=== PATIENT | female | born 1990 | race African-American/Black ===

== ENCOUNTER 2016-04-25 06:08 | Observation (INO) | payer OTHER ==
[~2016-04-25] VITALS: Ht 165.1 cm; Wt 81.0 kg
[~2016-04-25 06:08] MED LIST: ALBU8I INH; AMOX500T PO; MEDR4PAK3 PO; PRED20 PO; VENTAER INH; ZITH250T PO
[2016-04-25 06:11] VITALS: BP 145/89; PULSE 85; RESP 15; TEMP 99.2; O2SAT 100
[2016-04-25] MEDS ORDERED: VENTAER INH (07:40)
[2016-04-25] MEDS ORDERED: MACR100C2 PO (07:40)
[2016-04-25 08:00] VITALS: BP 122/67; PULSE 87; RESP 19; O2SAT 100
[2016-04-25] MEDS ORDERED: ACETAMINOPHEN 325 MG TAB PO ONE (08:00)
--- NOTE | 2016-04-25 08:01 | PD ---
HPI Chief Complaint: Abdominal Pain Time Seen by Provider: 07:40 Travel History International Travel<30 days: No Contact w/Intl Traveler<30days: No Traveled to known affect area: No History of Present Illness HPI This is a 25-year-old female who presents the emergency department with lower abdominal pain, cramping, worse in the left side feeling of fullness in her abdomen, constant, moderate severity. Patient says the pains been going on for a week and a half. She does have some difficulty urinating and initiating her stream but denies any frequency, urgency, fevers or chills. She denies any vomiting. She's not had any constipation or diarrhea. She went to [facility] 2 nights ago and had a urinalysis ordered which confirmed a urinary tract infection. She was discharged with Macrobid. She didn't fill it because it was expensive and she doesn't feel at all like she's had a urinary tract infection. She denies any vaginal discharge or vaginal bleeding. She is sexually active with one male partner. PFSH Past Medical History Asthma: Yes Diabetes: Yes (PRE) Patient Takes Glucophage: No Diminished Hearing: No Gastrointestinal Disorders: No Headaches: Yes Reproductive: No Immunizations Current: Yes Tetanus Vaccination: < 5 Years Influenza Vaccination: No ?: Not LMP: 04/05/16 Menopausal: No : 0 Para: 0 Miscarriage: 0 : 0 Past Surgical History Appendectomy: Yes Other Surgery: No Social History Alcohol Use: No Tobacco Use: Yes Substance Use: No Allergies-Medications (Allergen,Severity, Reaction): Coded Allergies: No Known Allergies (Verified , 04/25/16) Reported Meds & Prescriptions Reported Meds & Active Scripts Active Reported Macrobid (Nitrofurantoin Monoh/Nitrofur Macro) 100 Mg Cap 100 Mg PO BID Ventolin Hfa 18 GM Inh (Albuterol Sulfate) 90 Mcg/Act Aer 2 Puff INH Q4H PRN Review of Systems Except as stated in HPI: all other systems reviewed are Neg Physical Exam Narrative GENERAL:Well appearing, no acute distress SKIN: Warm and dry. HEAD: Atraumatic. Normocephalic. EYES: Pupils equal and round. No injection or drainage. ENT: Moist mucous membranes NECK: Trachea midline. CARDIOVASCULAR: Regular rate and rhythm. No murmur appreciated. RESPIRATORY: Clear to auscultation. Breath sounds equal bilaterally. GASTROINTESTINAL: Abdomen soft, firm mass appreciated from below the xiphoid down to the suprapubic area, moderately tender to palpation. MUSCULOSKELETAL: No obvious deformities. NEUROLOGICAL: Awake and alert. No obvious cranial nerve deficits. Moving all extremities.. PSYCHIATRIC: Appropriate mood and affect; insight and judgment normal. Data Data Last Documented VS Vital Signs Date Time Temp Pulse Resp B/P Pulse Ox O2 Delivery O2 Flow Rate FiO2 04/25/16 06:11 99.2 85 15 145/89 100 Room Air Orders Ed Poc Ultrasound (04/25/16 ) Complete Blood Count With Diff (04/25/16 07:54) Comprehensive Metabolic Panel (04/25/16 07:54) ^ Insert Iv (04/25/16 07:54) Ed Urine Pregnancytest Poc (04/25/16 07:54) Urinalysis - C+S If Indicated (04/25/16 07:54) Ct Abd/Pel W Iv Contrast(Rout) (04/25/16 ) Acetaminophen (Tylenol) (04/25/16 08:00) Urine Culture (04/25/16 08:05) Iohexol 350 Inj (Omnipaque 350 Inj) (04/25/16 08:55) Us Pelvis Comp W Doppler (04/25/16 ) Consult Gynecology (04/25/16 ) Admit Order (Ed Use Only) (04/25/16 ) Place In Observation (04/25/16 ) Vital Signs (Adult) Q4H (04/25/16 09:39) Activity Oob With Assistance (04/25/16 09:39) Sodium Chlor 0.9% 1000 Ml Inj (Ns 1000 M (04/25/16 09:39) Sodium Chloride 0.9% Flush (Ns Flush) (04/25/16 09:45) Sodium Chloride 0.9% Flush (Ns Flush) (04/25/16 21:00) Acetaminophen (Tylenol) (04/25/16 12:00) Ondansetron Inj (Zofran Inj) (04/25/16 09:45) Prochlorperazine Supp (Compazine Supp) (04/25/16 10:00) Bisacodyl Supp (Dulcolax Supp) (04/25/16 09:45) Sennosides (Senokot) (04/25/16 09:45) Basic Metabolic Panel (Bmp) (04/26/16 06:00) Complete Blood Count With Diff (04/26/16 06:00) Resp Oxygen Walter C Titrat 1-4 L (04/25/16 ) Case Management Consult (04/25/16 09:39) Heparin Inj (Heparin Inj) (04/25/16 10:00) Scd Bilateral/Knee High GELACIO.BID (04/25/16 09:39) Demian Bilateral/Knee High GELACIO.QSHIFT (04/25/16 09:39) Diet Regular Basic (04/25/16 Breakfast) Ceftriaxone Inj (Rocephin Inj) (04/25/16 11:00) Labs Laboratory Tests Test 04/25/16 08:05 White Blood Count 9.7 TH/MM3 Red Blood Count 4.27 MIL/MM3 Hemoglobin 12.5 GM/DL Hematocrit 37.2 % Mean Corpuscular Volume 87.2 FL Mean Corpuscular Hemoglobin 29.4 PG Mean Corpuscular Hemoglobin 33.7 % Concent Red Cell Distribution Width 13.7 % Platelet Count 308 TH/MM3 Mean Platelet Volume 8.1 FL Neutrophils (%) (Auto) 46.0 % Lymphocytes (%) (Auto) 42.5 % Monocytes (%) (Auto) 8.2 % Eosinophils (%) (Auto) 2.5 % Basophils (%) (Auto) 0.8 % Neutrophils # (Auto) 4.4 TH/MM3 Lymphocytes # (Auto) 4.1 TH/MM3 Monocytes # (Auto) 0.8 TH/MM3 Eosinophils # (Auto) 0.2 TH/MM3 Basophils # (Auto) 0.1 TH/MM3 CBC Comment DIFF FINAL Differential Comment Urine Color YELLOW Urine Turbidity HAZY Urine pH 5.5 Urine Specific [place] 1.020 Urine Protein TRACE mg/dL Urine Glucose (UA) NEG mg/dL Urine Ketones NEG mg/dL Urine Occult Blood NEG Urine Nitrite NEG Urine Bilirubin NEG Urine Urobilinogen 2.0 MG/DL Urine Leukocyte Esterase LARGE Urine RBC 3 /hpf Urine WBC 8 /hpf Urine Squamous Epithelial 21 /hpf Cells Urine Transitional Epithelial <1 /hpf Cells Urine Bacteria MOD /hpf Urine Mucus MOD /lpf Microscopic Urinalysis Comment CULTURE INDICATED Sodium Level 136 MEQ/L Potassium Level 3.7 MEQ/L Chloride Level 104 MEQ/L Carbon Dioxide Level 24.7 MEQ/L Anion Gap 7 MEQ/L Blood Urea Nitrogen 5 MG/DL Creatinine 0.81 MG/DL Estimat Glomerular Filtration 106 ML/MIN Rate Random Glucose 102 MG/DL Calcium Level 9.0 MG/DL Total Bilirubin 0.2 MG/DL Aspartate Amino Transf 14 U/L (AST/SGOT) Alanine Aminotransferase 17 U/L (ALT/SGPT) Alkaline Phosphatase 70 U/L Total Protein 7.6 GM/DL Albumin 3.4 GM/DL MDM Medical Decision Making Medical Screen Exam Complete: Yes Emergency Medical Condition: Yes Interpretation(s) Afebrile, no tachycardia, hypertensive No leukocytosis Electrolytes within normal limits Urinalysis: White blood cells in the urine Last 24 hours Impressions Abdomen/Pelvis CT 04/25/16 0000 Signed Impressions: Service Date/Time: April 08:52 - CONCLUSION: This is an abnormal exam. There are large heterogeneously enhancing masses which appear to arise from the uterus with the largest mass demonstrating adjacent free fluid. Given this appearance these masses likely represent pedunculated fibroids. The larger mass is concerning for possible sarcomatous degeneration versus torsion. The large cystic lesion identified within the anterior left pelvis appears to represent an enlarged left ovary. Given the large size of the follicle and suggestion of internal septations recommend further evaluation with dedicated ultrasound to exclude torsion or features suggestive of neoplasm. Jerilyn Morales MD Differential Diagnosis Fibroid tumor, malignancy, bowel obstruction, , urinary tract infection Narrative Course This is a 25-year-old female who presents the emergency department with abdominal pain that's been going on for 2 weeks. On exam she has an obvious mass in her abdomen. A bedside ultrasound confirmed this. I performed a CT abdomen and pelvis which demonstrates allergic mass likely coming from the pelvis. They recommend a formal ultrasound for further evaluation. I spoke to gynecology who will consult on the patient. CT has some question regarding torsion. The patient is quite comfortable and doesn't appear clinically to be having an ovarian torsion at this time. Patient will be admitted for further assessment. Procedures Procedure Narrative [id number] ultrasound: Large mass arising in the pelvis and ending in the upper abdomen Physician Communication Physician Communication Discussed with Dr. Brunson Diagnosis Primary Impression: Pelvic mass Admitting Information Admitting Physician Requests: Admit Maryam Galindo MD Apr 25, 2016 08:01
[2016-04-25 08:19] LABS: AUTOMATED NEUTROPHIL # 4.4 TH/MM3 (1.8-7.7); BASOPHIL # 0.1 TH/MM3 (0-0.2); BASOPHIL % 0.8 % (0.0-2.0); EOSINOPHIL # 0.2 TH/MM3 (0-0.4); EOSINOPHIL % 2.5 % (0.0-4.0); HEMATOCRIT 37.2 % (35.0-46.0); HEMO FLAGS DIFF FINAL; LYMPH % 42.5 % (9.0-44.0); LYMPHOCYTE # 4.1 TH/MM3 (1.0-4.8); MEAN CELL VOLUME 87.2 FL (80.0-100.0); MEAN CORPUSCULAR HEMOGLOBIN 29.4 PG (27.0-34.0); MEAN CORPUSCULAR HGB CONC 33.7 % (32.0-36.0); MONO % 8.2 % (0.0-8.0); PLATELET COUNT 308 TH/MM3 (150-450); RED BLOOD COUNT 4.27 MIL/MM3 (4.00-5.30); RED CELL DISTRIBUTION WIDTH 13.7 % (11.6-17.2); WHITE BLOOD COUNT 9.7 TH/MM3 (4.0-11.0)
[2016-04-25 08:25] LABS: BACTERIA, URINE MOD /hpf; BLOOD, URINE NEG (NEG); COMMENT (UR) CULTURE INDICATED; CULTURE IF INDICATED CULTURE INDICATED; GLUCOSE,URINE NEG (NEG); KETONE, URINE NEG (NEG); MUCUS URINE MOD /lpf (OCC); NITRITE,URINE NEG (NEG); PH, URINE 5.5 (5.0-8.5); SQUAMOUS EPITHELIAL CELL URINE 21 /hpf (0-5); TRANSITIONAL EPI CELLS, URINE <1 /hpf; URINE COLOR YELLOW (YELLW/STRAW)
[2016-04-25 08:30] LABS: ALT (GPT) 17 U/L (10-53); ANION GAP 7 MEQ/L (5-15); AST (GOT) 14 U/L (15-37); BICARBONATE 24.7 MEQ/L (21.0-32.0); BLOOD UREA NITROGEN 5 MG/DL (7-18); CHLORIDE 104 MEQ/L (98-107); GLOMERULAR FILTRATION RATE 106 ML/MIN (>89); POTASSIUM 3.7 MEQ/L (3.5-5.1); SODIUM (NA) 136 MEQ/L (136-145)
[2016-04-25 08:33] LABS: ALKALINE PHOSPHATASE 70 U/L (45-117); TOTAL BILIRUBIN ADULT 0.2 MG/DL (0.2-1.0)
[2016-04-25] MEDS ORDERED: IOHEXOL 350 MG/ML 10 ML VIAL (for RAD DIAG) IV ONE (08:55)
--- NOTE | 2016-04-25 09:14 | RADRPT ---
EXAM DATE/TIME: 04/25/2016 08:52 [facility] COMPARISON: No previous studies available for comparison. INDICATIONS : Lower abdominal pain, worse on left side IV CONTRAST: 97 cc Omnipaque 350 (iohexol) IV ORAL CONTRAST: No oral contrast ingested. RADIATION DOSE: 9.22 CTDIvol (mGy) MEDICAL HISTORY : None SURGICAL HISTORY : Appendectomy. ENCOUNTER: Initial ACUITY: 4 - 6 days PAIN SCALE: 5/10 LOCATION: Left lower quadrant TECHNIQUE: Volumetric scanning of the abdomen and pelvis was performed. Using automated exposure control and ad justment of the mA and/or kV according to patient size, radiation dose was kept as low as reasonably achievable to obtain optimal diagnostic quality images. FINDINGS: LOWER LUNGS: The visualized lower lungs are clear. LIVER: Homogeneous density without lesion. There is no dilation of the biliary tree. No calcified gallston es. SPLEEN: Normal size without lesion. PANCREAS: Within normal limits. KIDNEYS: Normal in size and shape. There is no mass, stone or hydronephrosis. ADRENAL GLANDS: Within normal limits. VASCULAR: There is no aortic aneurysm. BOWEL/MESENTERY: The stomach, small bowel, and colon demonstrate no acute abnormality. ABDOMINAL WALL: Within normal limits. RETROPERITONEUM: There is no lymphadenopathy. BLADDER: No wall thickening or mass. REPRODUCTIVE: There are 2 lobulated heterogeneously enhancing masses which appear to originate from the uterus. The smaller mass is seen on the left measuring 3.3 x 3.6 x 4.1 cm. There is a large lobulated mass which appears to arise from the superior lateral aspect of the uterus which measures 14.7 cm craniocaudall y by 15.6 cm transversely by 7.9 cm anterior posterior. This mass is associated with a small amount o f free fluid inferiorly. Along the anterior aspect of the uterus, slightly to the left is 8 well circ umscribed fluid density mass with suggestion of internal septations. This mass measures 6.4 cm transv ersely by 5 cm anteroposterior by 5.5 cm craniocaudally. This mass causes moderate mass effect on the adjacent bladder and may arise from the left adnexa. There is a small low-density structure seen adj acent to the right lower uterine segment measuring 2.5 x 2.6 x 3.0 cm and appears to represent a norm al right ovary. INGUINAL: There is no lymphadenopathy or hernia. MUSCULOSKELETAL: Within normal limits for patient age. CONCLUSION: This is an abnormal exam. There are large heterogeneously enhancing masses which appe ar to arise from the uterus with the largest mass demonstrating adjacent free fluid. Given this appea ana lilia these masses likely represent pedunculated fibroids. The larger mass is concerning for possible sarcomatous degeneration versus torsion. The large cystic lesion identified within the anterior left pelvis appears to represent an enlarged left ovary. Given the large size of the follicle and suggest ion of internal septations recommend further evaluation with dedicated ultrasound to exclude torsion or features suggestive of neoplasm. Jerilyn Morales MD on April 25, 2016 at 9:01 Board Certified Radiologist. This report was verified electronically.
[2016-04-25] MEDS ORDERED: ONDANSETRON HCL 4 MG/2 ML VIAL IVP PRN (09:45)
[2016-04-25] MEDS ORDERED: SENNOSIDES 8.6 MG TAB PO PRN (09:45)
[2016-04-25] MEDS ORDERED: SODIUM CHLORIDE 0.9% FLUSH 5 ML FLUSH FLUSH PRN (09:45)
[2016-04-25] MEDS ORDERED: BISACODYL 10 MG SUPP PR PRN (09:45)
[2016-04-25] MEDS ORDERED: HEPARIN SODIUM - SQ 10,000 UNITS/ML VIAL SQ SCH (10:00)
[2016-04-25] MEDS ORDERED: PROCHLORPERAZINE 25 MG SUPP PR PRN (10:00)
[2016-04-25] MEDS: SODIUM CHLOR 0.9% 1000 ML INJ 1,000 ML IV SCH ×2 (10:43→22:34)
[2016-04-25 11:00] VITALS: BP 121/78; PULSE 77; RESP 20; O2SAT 100
[2016-04-25] MEDS ORDERED: cefTRIAXone INJ 1,000 MG in SODIUM CHLORIDE 0.9% INJ 100 ML IV SCH (11:00)
[2016-04-25 11:41] VITALS: BP 126/68; PULSE 77; RESP 18; TEMP 98.6; O2SAT 100
[2016-04-25] MEDS ORDERED: ACETAMINOPHEN 325 MG TAB PO PRN (12:00)
--- NOTE | 2016-04-25 13:07 | RADRPT ---
EXAM DATE/TIME: 04/25/2016 10:30 [facility] COMPARISON: CT ABDOMEN & PELVIS W CONTRAST, April 25, 2016, 8:52. INDICATIONS : Pelvic pain. MEDICAL HISTORY : Pre-diabetes. Asthma. SURGICAL HISTORY : Appendectomy. ENCOUNTER: Initial ACUITY: 1 week PAIN SCORE: 9/10 LOCATION: Bilateral pelvis MEASUREMENTS: UTERUS: 11.1 x 3.9 x 4.5 cm ENDOMETRIAL STRIPE: 7 mm RIGHT OVARY: 3.4 x 2.3 x cm LEFT OVARY: 3.3 x 1.6 x 2.2 cm FINDINGS: UTERUS: The endometrium has a normal appearance. Arising from the uterine fundus there is an exophytic hypoec hoic solid appearing mass measuring 3.2 x 3.2 x 3.6 cm. Also abutting and possibly arising from the f undal aspect of the uterus is a hypoechoic solid mass with internal vascularity measuring approximate ly 14.7 x 10.6 x 10.6 cm. RIGHT OVARY: The right ovary is visualized and appears to represent a separate structure from the solid pelvis mas s. Blood flow is documented. LEFT OVARY: There is a cystic structure in the midline pelvis 2 left adnexa that potentially could arise from the left ovary. The left ovary has internal blood flow. The cystic lesion measures 5.8 x 4.3 x 6.7 cm. I t contains no internal septations. MISCELLANEOUS: There is trace free fluid in the posterior cul-de-sac and left adnexa. CONCLUSION: 1. There is a large solid mass in the pelvis measuring up to 14.7 cm. Based on ultrasound and prior C T this abuts and may arise from the uterus raising suspicion for a pedunculated leiomyoma. Given the heterogeneous appearance and size, a sarcoma should also be considered. The right ovary appears as a separate structure from this finding suggesting that it does not arise from the ovary. 2. There is an exophytic subserosal fibroid arising from the left fundus measuring up to 3.6 cm. 3. There is a cystic lesion in the midline pelvis to left adnexal region measuring up to 6.7 cm. Etio logy of this cystic lesion is uncertain but is near the left ovary and potentially may be arising fro m the left ovary. Gianfranco Hampton MD on April 25, 2016 at 12:56 Board Certified Radiologist. This report was verified electronically.
--- NOTE | 2016-04-25 14:52 | PD.CONS ---
HPI Chief Complaint abdominal pain Date Seen: Apr 25, 2016 Time Seen: 14:01 (Gerard Sheldon MD R1) Travel History International Travel<30 Days: No Contact w/Intl Traveler<30Days: No Known Affected Area: No (Gerard Sheldon MD R1) History of Present Illness HPI 25 y/o -[place] female presents with abdominal pain. 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 States that the lower abdominal pain and cramping started for a week and a half. Also feels bloated. Constant pain. Moderate severity, getting worse. Endorses difficulty urinating and frequent urination. Denies dysuria. Denies any fever/chills, diarrhea. Denies recent weight loss, night sweats. States she has constipation off and on. Does have streaks of blood in her stool when her stools is hard. She did go to [facility] 2 nights ago and had UTI diagnosed. Did not take any medication. Denies any vaginal discharge or bleeding. Her periods are regular and monthly. Menarche at 12 y/o. Had heavy and painful periods for a couple years, but they are asymptomatic now after starting oral contraceptives. She is sexually active with 1 partner. No history of pain like this before. Para: 0 : 0 Last Menstrual Period: Apr 05, 2016 (Gerard Sheldon MD R1) History Past Medical History Narrative Medical Asthma (Gerard Sheldon MD R1) Obstetric History Obstetric History Never (Gerard Sheldon MD R1) Past Surgical History Narrative Surgical Appendectomy (Gerard Sheldon MD R1) Family History Narrative Family History Parents are healthy No siblings. No history of cancer in the family (Gerard Sheldon MD R1) Social History Alcohol Use: No Tobacco Use: No Substance Abuse: No (Gerard Sheldon MD R1) Allergies-Medications (Allergen,Severity, Reaction): Coded Allergies: No Known Allergies (Verified , 04/25/16) Home Meds Reported Medications Nitrofurantoin Monohydrate Macrocrystals (Macrobid)100 Mg [id number] Mg PO BID Ref 0 04/25/16 Albuterol 18 GM Inh (Ventolin Hfa 18 GM Inh)90 Mcg/Act Aer2 Puff INH Q4H PRN ( SHORTNESS OF BREATH) #1 INHALER Ref 0 04/25/16 Review of Systems General / Constitutional: No: Fever, Weight Loss, Chills Eyes: No: Visual changes HENT: No: Headaches, Lightheadedness Cardiovascular: No: Chest Pain or Discomfort, Palpitations Respiratory: No: Cough, Short of Breath Gastrointestinal: Abdominal Pain, Constipation, No: Nausea, Vomiting, Diarrhea Genitourinary: Urgency, Frequency, Pelvic Pain, No: Dysuria, Hematuria, Discharge, Vaginal Bleeding Musculoskeletal: No: Weakness, Cramping, Edema Skin: No Rash, No Itching Neurologic: No: Weakness, Dizziness Psychiatric: No: Anxiety, Depression Endocrine: No: Heat Intolerance, Cold Intolerance Hematologic/Lymphatic: No Easy Bruising, No Lymph Node Enlargement (Gerard Sheldon MD R1) Physical Exam Narrative GENERAL: Well-nourished, well-developed patient. SKIN: Warm and dry. HEAD: Normocephalic and atraumatic. EYES: No scleral icterus. No injection or drainage. ENT: No nasal drainage noted. Mucous membranes pink. Airway patent. NECK: Supple, trachea midline. No JVD. CARDIOVASCULAR: Regular rate and rhythm without murmurs, gallops, or rubs. RESPIRATORY: Breath sounds equal bilaterally. No accessory muscle use. ABDOMEN/GI: Abdomen soft. Minimally tender to palpation in LLQ. Mid-abdominal mass appreciated, minimally tender to palpation. BS+ EXTREMITIES: No cyanosis or edema. BACK: Nontender without obvious deformity. No CVA tenderness. NEUROLOGICAL: Awake and alert. Motor and sensory grossly within normal limits. Five out of 5 muscle strength in all muscle groups. Normal speech. (Gerard Sheldon MD R1) Data Data Vital Signs Reviewed: Yes Orders Ed Poc Ultrasound (04/25/16 ) Complete Blood Count With Diff (04/25/16 07:54) Comprehensive Metabolic Panel (04/25/16 07:54) ^ Insert Iv (04/25/16 07:54) Ed Urine Pregnancytest Poc (04/25/16 07:54) Urinalysis - C+S If Indicated (04/25/16 07:54) Ct Abd/Pel W Iv Contrast(Rout) (04/25/16 ) Acetaminophen (Tylenol) (04/25/16 08:00) Urine Culture (04/25/16 08:05) Iohexol 350 Inj (Omnipaque 350 Inj) (04/25/16 08:55) Us Pelvis Comp W Doppler (04/25/16 ) Consult Gynecology (04/25/16 ) Admit Order (Ed Use Only) (04/25/16 ) Place In Observation (04/25/16 ) Vital Signs (Adult) Q4H (04/25/16 09:39) Activity Oob With Assistance (04/25/16 09:39) Sodium Chlor 0.9% 1000 Ml Inj (Ns 1000 M (04/25/16 09:39) Sodium Chloride 0.9% Flush (Ns Flush) (04/25/16 09:45) Sodium Chloride 0.9% Flush (Ns Flush) (04/25/16 21:00) Acetaminophen (Tylenol) (04/25/16 12:00) Ondansetron Inj (Zofran Inj) (04/25/16 09:45) Prochlorperazine Supp (Compazine Supp) (04/25/16 10:00) Bisacodyl Supp (Dulcolax Supp) (04/25/16 09:45) Sennosides (Senokot) (04/25/16 09:45) Basic Metabolic Panel (Bmp) (04/26/16 06:00) Complete Blood Count With Diff (04/26/16 06:00) Resp Oxygen Walter C Titrat 1-4 L (04/25/16 ) Case Management Consult (04/25/16 09:39) Heparin Inj (Heparin Inj) (04/25/16 10:00) Scd Bilateral/Knee High GELACIO.BID (04/25/16 09:39) Demian Bilateral/Knee High GELACIO.QSHIFT (04/25/16 09:39) Diet Regular Basic (04/25/16 Breakfast) Ceftriaxone Inj (Rocephin Inj) (04/25/16 11:00) (Hub Use Only)Inp Phy Cons/Ref (04/25/16 ) Labs Laboratory Tests Test 04/25/16 08:05 White Blood Count 9.7 Red Blood Count 4.27 Hemoglobin 12.5 Hematocrit 37.2 Mean Corpuscular Volume 87.2 Mean Corpuscular Hemoglobin 29.4 Mean Corpuscular Hemoglobin 33.7 Concent Red Cell Distribution Width 13.7 Platelet Count 308 Mean Platelet Volume 8.1 Neutrophils (%) (Auto) 46.0 Lymphocytes (%) (Auto) 42.5 Monocytes (%) (Auto) 8.2 Eosinophils (%) (Auto) 2.5 Basophils (%) (Auto) 0.8 Neutrophils # (Auto) 4.4 Lymphocytes # (Auto) 4.1 Monocytes # (Auto) 0.8 Eosinophils # (Auto) 0.2 Basophils # (Auto) 0.1 CBC Comment DIFF FINAL Differential Comment Urine Color YELLOW Urine Turbidity HAZY Urine pH 5.5 Urine Specific [place] 1.020 Urine Protein TRACE Urine Glucose (UA) NEG Urine Ketones NEG Urine Occult Blood NEG Urine Nitrite NEG Urine Bilirubin NEG Urine Urobilinogen 2.0 Urine Leukocyte Esterase LARGE Urine RBC 3 Urine WBC 8 Urine Squamous Epithelial 21 Cells Urine Transitional Epithelial <1 Cells Urine Bacteria MOD Urine Mucus MOD Microscopic Urinalysis Comment CULTURE INDICATED Sodium Level 136 Potassium Level 3.7 Chloride Level 104 Carbon Dioxide Level 24.7 Anion Gap 7 Blood Urea Nitrogen 5 Creatinine 0.81 Estimat Glomerular Filtration 106 Rate Random Glucose 102 Calcium Level 9.0 Total Bilirubin 0.2 Aspartate Amino Transf 14 (AST/SGOT) Alanine Aminotransferase 17 (ALT/SGPT) Alkaline Phosphatase 70 Total Protein 7.6 Albumin 3.4 Date/Time Procedure Status Source Growth 04/25/16 08:05 Urine Culture Received Urine Clean Catch Pending (Gerard Sheldon MD R1) [facility] Medical Record Reviewed: Yes Interpretation(s) 25 y/o with pelvic pain found to have uterine mass on ultrasound and CT. Imaging shows mass up to 14.7cm. Most likely a fibroid, but imaging can't rule out sarcoma. - Will need surgical intervention. Discuss case with Dr. Barajas dw Dr. Collins Admitting diagnosis: pelvic mass (Gerard Sheldon MD R1) Attestation Patient seen and examined with the resident under direct supervision, I agree with the assessment and plan. Will refer patient to Dr. Barajas after discharge for outpatient follow-up and further surgical management. I have discussed the patient with Dr. Barajas who agrees with the plan. (Alexi Collins MD) Gerard Sheldon MD R1 Apr 25, 2016 14:52 Alexi Collins MD Apr 25, 2016 22:50
--- NOTE | 2016-04-25 16:52 | HHI.HP ---
[facility] Service [facility] Primary Care Physician Gianfranco Garcia DO Admission Diagnosis pelvic mass Diagnoses: Chief Complaint: abdominal pain Travel History International Travel<30 Days: No Contact w/Intl Traveler <30 Da: No Traveled to Known Affected Are: No History of Present Illness 25 y/o -Prydeinig female without significant PMH presents with abdominal pain. States that the lower abdominal pain and cramping started for a week and a half. Also feels bloated. Constant pain. Moderate severity, getting worse. Endorses difficulty urinating and frequent urination. Denies dysuria. Denies any fever/chills, diarrhea. Denies recent weight loss, night sweats. States she has constipation off and on. Does have streaks of blood in her stool when her stools is hard. She did go to [facility] 2 nights ago and had UTI diagnosed. Did not take any medication. Denies any vaginal discharge or bleeding. Her periods are regular and monthly. Menarche at 12 y/o. Had heavy and painful periods for a couple years, but they are asymptomatic now after starting oral contraceptives. She is sexually active with 1 partner. No history of pain like this before. TIN DIPPER was consulted for evaluation of pelvic mass Review of Systems Constitutional: DENIES: Fever, Chills, Change in appetite Endocrine: DENIES: Heat/cold intolerance Eyes: DENIES: Blurred vision, Eye pain Ears, nose, mouth, throat: DENIES: Tinnitus, Hearing loss, Vertigo, Nasal discharge, Oral lesions, Throat pain, Hoarseness, Ear Pain, Running Nose, Epistaxis, Sinus Pain, Toothache, Odynophagia Respiratory: DENIES: Apneas, Cough, Snoring, Wheezing, Hemoptysis, Sputum production, Shortness of breath Cardiovascular: DENIES: Chest pain, Palpitations, Syncope, Dyspnea on Exertion , PND, Lower Extremity Edema, Orthopnea, Claudication Gastrointestinal: COMPLAINS OF: Abdominal pain, DENIES: Black stools, Bloody stools, Constipation, Diarrhea, Nausea, Vomiting, Difficulty Swallowing, Anorexia Genitourinary: COMPLAINS OF: Urinary frequency, Urgency Musculoskeletal: DENIES: Joint pain Neurologic: DENIES: Abnormal gait, Headache, Localized weakness, Paresthesias, Seizures, Speech Problems, Tremor, Poor Balance Psychiatric: DENIES: Anxiety, Depression Past Family Social History Past Medical History Asthma Past Surgical History Appendectomy Reported Medications Reported Meds & Active Scripts Active Reported Macrobid (Nitrofurantoin Monoh/Nitrofur Macro) 100 Mg Cap 100 Mg PO BID Ventolin Hfa 18 GM Inh (Albuterol Sulfate) 90 Mcg/Act Aer 2 Puff INH Q4H PRN Allergies: Coded Allergies: No Known Allergies (Verified , 04/25/16) Family History Parents are healthy No siblings. No history of cancer in the family Social History Denies EtOH use, tobacco use or illicit drug use. Physical Exam Vital Signs Vital Signs Date Time Temp Pulse Resp B/P Pulse Ox O2 Delivery O2 Flow Rate FiO2 04/25/16 11:41 98.6 77 18 126/68 100 04/25/16 11:00 77 20 121/78 100 Room Air 04/25/16 08:00 87 19 122/67 100 Room Air 04/25/16 06:11 99.2 85 15 145/89 100 Room Air Physical Exam GENERAL: This is a well-nourished, well-developed patient, in no apparent distress. SKIN: No rashes, ecchymoses or lesions. Cool and dry. HEAD: Atraumatic. Normocephalic. No temporal or scalp tenderness. EYES: Pupils equal round and reactive. Extraocular motions intact. No scleral icterus. No injection or drainage. ENT: Nose without bleeding, purulent drainage or septal hematoma. Throat without erythema, tonsillar hypertrophy or exudate. Uvula midline. Airway patent. NECK: Trachea midline. No JVD or lymphadenopathy. Supple, nontender, no meningeal signs. CARDIOVASCULAR: Regular rate and rhythm without murmurs, gallops, or rubs. RESPIRATORY: Clear to auscultation. Breath sounds equal bilaterally. No wheezes , rales, or rhonchi. GASTROINTESTINAL: Abdomen soft. Minimally tender to palpation in LLQ. Mid- abdominal mass appreciated, minimally tender to palpation. BS+ MUSCULOSKELETAL: Extremities without clubbing, cyanosis, or edema. No joint tenderness, effusion, or edema noted. No calf tenderness. Negative Homans sign bilaterally. NEUROLOGICAL: Awake and alert. Cranial nerves II through XII intact. Motor and sensory grossly within normal limits. Five out of 5 muscle strength in all muscle groups. Normal speech. Laboratory Laboratory Tests Test 04/25/16 08:05 White Blood Count 9.7 Red Blood Count 4.27 Hemoglobin 12.5 Hematocrit 37.2 Mean Corpuscular Volume 87.2 Mean Corpuscular Hemoglobin 29.4 Mean Corpuscular Hemoglobin 33.7 Concent Red Cell Distribution Width 13.7 Platelet Count 308 Mean Platelet Volume 8.1 Neutrophils (%) (Auto) 46.0 Lymphocytes (%) (Auto) 42.5 Monocytes (%) (Auto) 8.2 Eosinophils (%) (Auto) 2.5 Basophils (%) (Auto) 0.8 Neutrophils # (Auto) 4.4 Lymphocytes # (Auto) 4.1 Monocytes # (Auto) 0.8 Eosinophils # (Auto) 0.2 Basophils # (Auto) 0.1 CBC Comment DIFF FINAL Differential Comment Urine Color YELLOW Urine Turbidity HAZY Urine pH 5.5 Urine Specific Parker 1.020 Urine Protein TRACE Urine Glucose (UA) NEG Urine Ketones NEG Urine Occult Blood NEG Urine Nitrite NEG Urine Bilirubin NEG Urine Urobilinogen 2.0 Urine Leukocyte Esterase LARGE Urine RBC 3 Urine WBC 8 Urine Squamous Epithelial 21 Cells Urine Transitional Epithelial <1 Cells Urine Bacteria MOD Urine Mucus MOD Microscopic Urinalysis Comment CULTURE INDICATED Sodium Level 136 Potassium Level 3.7 Chloride Level 104 Carbon Dioxide Level 24.7 Anion Gap 7 Blood Urea Nitrogen 5 Creatinine 0.81 Estimat Glomerular Filtration 106 Rate Random Glucose 102 Calcium Level 9.0 Total Bilirubin 0.2 Aspartate Amino Transf 14 (AST/SGOT) Alanine Aminotransferase 17 (ALT/SGPT) Alkaline Phosphatase 70 Total Protein 7.6 Albumin 3.4 Date/Time Procedure Status Source Growth 04/25/16 08:05 Urine Culture Received Urine Clean Catch Pending Result Diagram: 04/25/16 0805 04/25/16 0805 Imaging Last Impressions Pelvis Ultrasound 04/25/16 0000 Signed Impressions: Service Date/Time: April 10:30 - CONCLUSION: 1. There is a large solid mass in the pelvis measuring up to 14.7 cm. Based on ultrasound and prior CT this abuts and may arise from the uterus raising suspicion for a pedunculated leiomyoma. Given the heterogeneous appearance and size, a sarcoma should also be considered. The right ovary appears as a separate structure from this finding suggesting that it does not arise from the ovary. 2. There is an exophytic subserosal fibroid arising from the left fundus measuring up to 3.6 cm. 3. There is a cystic lesion in the midline pelvis to left adnexal region measuring up to 6.7 cm. Etiology of this cystic lesion is uncertain but is near the left ovary and potentially may be arising from the left ovary. Gianfranco Hampton MD Abdomen/Pelvis CT 04/25/16 0000 Signed Impressions: Service Date/Time: April 08:52 - CONCLUSION: This is an abnormal exam. There are large heterogeneously enhancing masses which appear to arise from the uterus with the largest mass demonstrating adjacent free fluid. Given this appearance these masses likely represent pedunculated fibroids. The larger mass is concerning for possible sarcomatous degeneration versus torsion. The large cystic lesion identified within the anterior left pelvis appears to represent an enlarged left ovary. Given the large size of the follicle and suggestion of internal septations recommend further evaluation with dedicated ultrasound to exclude torsion or features suggestive of neoplasm. Jerilyn Morales MD Assessment and Plan Assessment and Plan 25 y/o with pelvic pain found to have uterine mass on ultrasound and CT. Imaging shows mass up to 14.7cm. Most likely a fibroid, but imaging can't rule out sarcoma. Patient also with recentUTI - claim benefit specialist consulted appreciate recommendations. Will need surgical intervention. UTI : Start rocephin. Code Status full code Discussed Condition With patient. nurse, ED physician Tiffanie Brusnon MD Apr 25, 2016 16:52
[2016-04-25 19:45] VITALS: BP 119/73; PULSE 85; RESP 18; TEMP 98.8; O2SAT 100
[2016-04-25] MEDS ORDERED: SODIUM CHLORIDE 0.9% FLUSH 5 ML FLUSH FLUSH SCH (21:00)
[2016-04-26] VITALS: BP 129/68; PULSE 74; RESP 18; TEMP 98.6; O2SAT 99
[2016-04-26 04:00] VITALS: BP 129/68; PULSE 74; RESP 16; TEMP 98.6; O2SAT 99
[2016-04-26 06:09] LABS: AUTOMATED NEUTROPHIL # 2.8 TH/MM3 (1.8-7.7); BASOPHIL # 0.1 TH/MM3 (0-0.2); BASOPHIL % 0.8 % (0.0-2.0); EOSINOPHIL # 0.2 TH/MM3 (0-0.4); EOSINOPHIL % 2.7 % (0.0-4.0); HEMATOCRIT 33.9 % (35.0-46.0); HEMO FLAGS DIFF FINAL; LYMPH % 52.7 % (9.0-44.0); LYMPHOCYTE # 4.2 TH/MM3 (1.0-4.8); MEAN CELL VOLUME 86.4 FL (80.0-100.0); MEAN CORPUSCULAR HGB CONC 33.5 % (32.0-36.0); MONO % 8.7 % (0.0-8.0); NEUT % 35.1 % (16.0-70.0); PLATELET COUNT 290 TH/MM3 (150-450); RED BLOOD COUNT 3.92 MIL/MM3 (4.00-5.30); RED CELL DISTRIBUTION WIDTH 13.8 % (11.6-17.2); WHITE BLOOD COUNT 7.9 TH/MM3 (4.0-11.0)
[2016-04-26 06:36] LABS: BICARBONATE 26.8 MEQ/L (21.0-32.0); POTASSIUM 3.7 MEQ/L (3.5-5.1)
--- NOTE | 2016-04-26 07:44 | HHI.DCPOC ---
Discharge Care Plan Goals to Promote Your Health * To prevent worsening of your condition and complications * To maintain your health at the optimal level Directions to Meet Your Goals Take your medications as prescribed Follow your dietary instruction Follow activity as directed Keep your appointments as scheduled Take your immunizations and boosters as scheduled If your symptoms worsen call your PCP, if no PCP go to Urgent Care Center or Emergency Room Smoking is Dangerous to Your Health. Avoid second hand smoke Call the 24-hour hour crisis hotline for domestic abuse at Tiffanie Brunson MD Apr 26, 2016 07:44
--- NOTE | 2016-04-26 07:46 | HHI.PR ---
Subjective Remarks Feels much better. No pain . No n/v/d/c. Denies fever or chills. Patient to follow up as OP with Dr Barajas. Objective Vitals Vital Signs Date Time Temp Pulse Resp B/P Pulse Ox O2 Delivery O2 Flow Rate FiO2 04/26/16 04:00 98.6 74 16 129/68 99 04/26/16 00:00 98.6 74 18 129/68 99 04/25/16 22:00 21 04/25/16 19:45 98.8 85 18 119/73 100 04/25/16 11:41 98.6 77 18 126/68 100 04/25/16 11:00 77 20 121/78 100 Room Air 04/25/16 08:00 87 19 122/67 100 Room Air I/O 04/25/16 04/25/16 04/25/16 04/26/16 04/26/16 04/26/16 07:00 15:00 23:00 07:00 15:00 23:00 Intake Total 240 ml Output Total 550 ml 500 ml Balance -550 ml -260 ml Intake Oral 240 ml Output Urine Total 550 ml 500 ml # Voids 2 Result Diagram: 04/26/16 0433 04/26/16 0433 Imaging Last Impressions Pelvis Ultrasound 04/25/16 0000 Signed Impressions: Service Date/Time: April 10:30 - CONCLUSION: 1. There is a large solid mass in the pelvis measuring up to 14.7 cm. Based on ultrasound and prior CT this abuts and may arise from the uterus raising suspicion for a pedunculated leiomyoma. Given the heterogeneous appearance and size, a sarcoma should also be considered. The right ovary appears as a separate structure from this finding suggesting that it does not arise from the ovary. 2. There is an exophytic subserosal fibroid arising from the left fundus measuring up to 3.6 cm. 3. There is a cystic lesion in the midline pelvis to left adnexal region measuring up to 6.7 cm. Etiology of this cystic lesion is uncertain but is near the left ovary and potentially may be arising from the left ovary. Gianfranco Hampton MD Abdomen/Pelvis CT 04/25/16 0000 Signed Impressions: Service Date/Time: April 08:52 - CONCLUSION: This is an abnormal exam. There are large heterogeneously enhancing masses which appear to arise from the uterus with the largest mass demonstrating adjacent free fluid. Given this appearance these masses likely represent pedunculated fibroids. The larger mass is concerning for possible sarcomatous degeneration versus torsion. The large cystic lesion identified within the anterior left pelvis appears to represent an enlarged left ovary. Given the large size of the follicle and suggestion of internal septations recommend further evaluation with dedicated ultrasound to exclude torsion or features suggestive of neoplasm. Jerilyn Morales MD Objective Remarks GENERAL: This is a well-nourished, well-developed patient, in no apparent distress. SKIN: No rashes, ecchymoses or lesions. Cool and dry. HEAD: Atraumatic. Normocephalic. No temporal or scalp tenderness. EYES: Pupils equal round and reactive. Extraocular motions intact. No scleral icterus. No injection or drainage. ENT: Nose without bleeding, purulent drainage or septal hematoma. Throat without erythema, tonsillar hypertrophy or exudate. Uvula midline. Airway patent. NECK: Trachea midline. No JVD or lymphadenopathy. Supple, nontender, no meningeal signs. CARDIOVASCULAR: Regular rate and rhythm without murmurs, gallops, or rubs. RESPIRATORY: Clear to auscultation. Breath sounds equal bilaterally. No wheezes , rales, or rhonchi. GASTROINTESTINAL: Abdomen soft. Minimally tender to palpation in LLQ. Mid- abdominal mass appreciated, minimally tender to palpation. BS+ MUSCULOSKELETAL: Extremities without clubbing, cyanosis, or edema. No joint tenderness, effusion, or edema noted. No calf tenderness. Negative Homans sign bilaterally. NEUROLOGICAL: Awake and alert. Cranial nerves II through XII intact. Motor and sensory grossly within normal limits. Five out of 5 muscle strength in all muscle groups. Normal speech. A/P Assessment and Plan 25 y/o with pelvic pain found to have uterine mass on ultrasound and CT. Imaging shows mass up to 14.7cm. Most likely a fibroid, but imaging can't rule out sarcoma. Patient also with recentUTI - senior clinical sas programmer consulted appreciate recommendations. Will need surgical intervention later on. Seen by ob gyn physician assistant service recommends follow up as OP. Cleared for DC. VS stable Labs stable. Can DC home today UTI : on rocephin.Continue home meds at DC. U cx neg. Code Status full code Discussed Condition With patient. nurse Discharge Planning DC home in fairly good condition. To follow up as OP with PCP and consultants. Diet regular as tolerated. Activity ad geo as tolerated. Follow up as OP with PCP and consultants. Tiffanie Brunson MD Apr 26, 2016 07:45
[2016-04-26 08:30] VITALS: BP 121/81; PULSE 68; RESP 18; TEMP 98.1; O2SAT 100
== END 2016-04-26 09:52 | disposition home or self-care (01) ==
LOC: NEPC 06:08 → INTOOBSV 09:40 → NEDA 09:40 → UNDOADMIN 09:42 → NEDA 11:30 → H1EA 11:30 → UNDODISIN 04-26 09:52
PROVIDERS: ADMIT Hospitalist; ATTEND Hospitalist
DX: D25.2 Subserosal leiomyoma of uterus (principal); N39.0 Urinary tract infection, site not specified; K59.00 Constipation, unspecified; J45.909 Unspecified asthma, uncomplicated; Z72.0 Tobacco use
CPT/HCPCS: 74177; 76856; 80048; 80053; 81001; 84703; 85025; 87086; 93975; 99285; G0378; J0696; J1644; J7030; Q9967

== ENCOUNTER 2016-09-26 13:27 | Emergency (ER) | payer OTHER ==
[~2016-09-26] VITALS: Ht 167.6 cm; Wt 90.0 kg
[~2016-09-26 13:27] MED LIST changes: -ALBU8I INH; -AMOX500T PO; +MACR100C2 PO; -MEDR4PAK3 PO; -PRED20 PO; -ZITH250T PO
[2016-09-26 13:30] VITALS: BP 114/76; PULSE 80; RESP 18; TEMP 98.2; O2SAT 100
--- NOTE | 2016-09-26 13:58 | PD ---
Physical Exam Time Seen by Provider: 13:56 Narrative 25yo F c/o increased abd pain for last couple weeks due to hx of known pelvic mass. Was seen here in April. Followed up with [employer]RO[employer] KEEPER, but has problem w/ insurance. Denies fever, vomiting. Patient seen in triage. VS reviewed. Awaiting bed placement. Data Data Last Documented VS Vital Signs Date Time Temp Pulse Resp B/P Pulse Ox O2 Delivery O2 Flow Rate FiO2 09/26/16 13:30 98.2 80 18 114/76 100 Room Air MDM Supervised Visit with RIVKA: Jayleen Bradshaw Sep 26, 2016 13:57
[2016-09-26] MEDS ORDERED: NORG1TAB2 PO (14:13)
[2016-09-26] MEDS ORDERED: TRAM50TA PO (14:24)
[2016-09-26] MEDS ORDERED: IBUP800T23 PO (14:24)
--- NOTE | 2016-09-26 14:25 | PD ---
HPI . 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 She states that she was diagnosed with a fibroid in April. She has not followed up with BATTERY SERVICE TECHNICIAN as an outpatient because the doctor's office did not take her insurance. She presents to us today under the assumption that she can check in for surgery. She describes constant pelvic pain which she rates as 10/10. She does not have any other associated symptoms such as heavy vaginal bleeding. PFSH Past Medical History Asthma: Yes Diabetes: Yes (PRE) Patient Takes Glucophage: No Diminished Hearing: No Gastrointestinal Disorders: No Headaches: Yes Reproductive: No Immunizations Current: Yes Tetanus Vaccination: > 5 Years Influenza Vaccination: No ?: Not LMP: 08/28/16 Menopausal: No : 0 Para: 0 Miscarriage: 0 : 0 Past Surgical History Appendectomy: Yes Other Surgery: No Social History Alcohol Use: No Tobacco Use: No Substance Use: No Allergies-Medications (Allergen,Severity, Reaction): Coded Allergies: No Known Allergies (Verified , 09/26/16) Reported Meds & Prescriptions Reported Meds & Active Scripts Active Reported [id number]-[id number] (Norgestimate-Ethinyl Estradiol) 0.18/0.215/0.25 mg-25 Mcg Tab 1 Tab PO DAILY Review of Systems Except as stated in HPI: all other systems reviewed are Neg Genitourinary: Positive: Pelvic Pain Physical Exam Narrative GENERAL: Patient is awake and alert and in no acute distress. SKIN: Warm and dry. HEAD: Atraumatic. Normocephalic. EYES: Pupils equal and round. Extraocular movements are intact. ENT: No nasal bleeding or discharge. Mucous membranes pink and moist. NECK: Trachea midline. Neck is supple. CARDIOVASCULAR: Regular rate and rhythm. RESPIRATORY: No accessory muscle use. GASTROINTESTINAL: Abdomen soft. Palpable suprapubic mass. MUSCULOSKELETAL: No obvious deformities. No edema. NEUROLOGICAL: Awake and alert. No obvious cranial nerve deficits. Motor grossly within normal limits. Normal speech. PSYCHIATRIC: Appropriate mood and affect; insight and judgment normal. Data Data Last Documented VS Vital Signs Date Time Temp Pulse Resp B/P Pulse Ox O2 Delivery O2 Flow Rate FiO2 09/26/16 14:14 17 09/26/16 13:30 98.2 80 114/76 100 Room Air MDM Medical Decision Making Medical Screen Exam Complete: Yes Emergency Medical Condition: Yes Medical Record Reviewed: Yes (patient was admitted here for this pelvic mass. She was seen by gynecology. Gynecology felt that she should be taken care of on an outpatient basis.) Differential Diagnosis Differential diagnosis of pelvic pain includes but is not limited to UTI, PID, ectopic , spontaneous AB, constipation, viral illness Narrative Course This patient presents with a known pelvic mass. She needs to be followed up by gynecology. The patient was under the impression that she could check herself into the hospital for surgery coming to the emergency department. I have explained to her that this is not the case. She does not seem to understand. Diagnosis Primary Impression: Pelvic mass Referrals: Housing Counselor Patient Instructions: General Instructions, Pelvic Pain (ED) Med/Other Pt SpecificInfo: Prescription(s) given Scripts Tramadol 50 Mg Tab50 Mg PO Q4H PRN (PAIN) #12 TAB Ref 0 Prov:Haylie Hernández MD 09/26/16 Ibuprofen 800 Mg [id number] Mg PO Q8H PRN (Pain/Inflammation) #60 TAB Ref 0 Prov:Haylie Hernández MD 09/26/16 Disposition: 01 DISCHARGE HOME Condition: Stable Haylie Hernández MD Sep 26, 2016 14:25
[2016-09-26 14:33] VITALS: BP 118/79; TEMP 97.8
== END 2016-09-26 14:33 | disposition home or self-care (01) ==
LOC: NEPD 13:27
DX: R19.00 Intra-abdominal and pelvic swelling, mass and lump, unspecified site (principal)
CPT/HCPCS: 99283

== ENCOUNTER 2017-01-30 07:32 | Observation (INO) | payer OTHER ==
[2017-01-30] VITALS (10 sets, daily range): BP systolic 107–126; BP diastolic 70–84; PULSE 55–82; RESP 14–20; TEMP 97.7–98.9; O2SAT 94–100
[~2017-01-30] VITALS: Ht 167.6 cm; Wt 93.0 kg
[~2017-01-30 07:32] MED LIST changes: +IBUP800T23 PO; -MACR100C2 PO; +NORG1TAB2 PO; +TRAM50TA PO; -VENTAER INH
[2017-01-30] MEDS ORDERED: IODIXANOL 320 MG/ML 50 ML VIAL (for RAD SPEC) I-UTERINE ONE (07:33)
[2017-01-30] MEDS ORDERED: DIAZEPAM 10 MG TAB PO SCH (08:15)
[2017-01-30] MEDS ORDERED: KETOROLAC TROMETHAMINE 30 MG/ML (IVP) VIAL IV PUSH SCH (08:15)
[2017-01-30] MEDS ORDERED: ceFAZolin 2 GM PREMIX 50 ML IV SCH (08:15)
[2017-01-30] MEDS: SODIUM CHLOR 0.9% 1000 ML INJ 1,000 ML IV SCH ×2 (08:15→18:15)
[2017-01-30] MEDS ORDERED: ONDANSETRON HCL 4 MG/2 ML VIAL IV PUSH SCH (08:15)
[2017-01-30] MEDS ORDERED: KETOROLAC TROMETHAMINE 60 MG/2 ML (IM) VIAL IM ONE (10:41)
[2017-01-30] MEDS ORDERED: MIDAZOLAM HCL 2 MG/2 ML VIAL ONE (10:54)
[2017-01-30] MEDS ORDERED: diphenhydrAMINE HCL 25 MG CAP PO PRN (11:30)
[2017-01-30] MEDS ORDERED: NALOXONE HCL 0.4 MG/ML AMP IV PUSH PRN (11:30)
[2017-01-30] MEDS ORDERED: HYDROmorphone HCL PCA 6 MG/30 ML IV SCH (11:30)
[2017-01-30] MEDS ORDERED: ONDANSETRON HCL 4 MG/2 ML VIAL IV PUSH PRN (12:30)
--- NOTE | 2017-01-30 12:34 | PD.RAD ---
Post Procedure Progress Note Pre Procedure Diagnosis: (1) Pelvic mass Post Procedure Diagnosis: (1) Pelvic mass Procedure Date: Jan 30, 2017 Supervising Radiologist: Ren Mesa JR Proceduralist/Assist: Imelda Rose, RT(R), Monse Michael RT(R) Anesthesia: Conscious Sedation Plan of Activity Patient to Unit: ROPU Patient Condition: Good Additional Comments: Successful bilateral uterine artery embolization. Majority of supply to fibroid uterus is via the right uterine artery. See PACS Report for procedural detail/treatment Jr. Moshe,Ren Smith MD Jan 30, 2017 12:34
--- NOTE | 2017-01-30 14:35 | RADRPT ---
EXAM DATE/TIME: 01/30/2017 10:40 [facility] COMPARISON: No previous studies available for comparison. INDICATIONS : Patient with a history of multiple large uterine mass is for hysterectomy. Presurgical embolization f or blood control is requested. MEDICAL HISTORY : Abdominal pelvic mass Fibroids Asthma Diabetes SURGICAL HISTORY : Appendectomy ENCOUNTER: Initial ACUITY: 7-11 months PAIN SCORE: 4/10 LOCATION: abdomen FLUORO TIME: 15.6 minutes IMAGE SERIES: 10 ACCESS SITE: Right Femoral artery SEDATION TIME: 60 minutes CONTRAST: 1.) 85 cc Visipaque (iodixanol) MEDICATION(S): 1.) 3 mg of intravenous Versed 2.) 150 mcg of intravenous fentanyl DEVICE(S): 1.) Right uterine artery 500-700 PVA 2.) Left uterine artery 500-700 PVA 3.) Right common femoral artery Syvek pad PROCEDURE : 1. Ultrasound-guided puncture of the right common femoral artery. 2. Left internal iliac artery arteriogram. 3. Left uterine artery arteriogram. 4. Embolization of the left uterine artery. 5. Right internal iliac artery arteriogram. 6. Right uterine artery arteriogram. 7. Embolization of the right uterine artery. 8. Conscious sedation with continuous EKG and oximetry monitoring. The risks, benefits and alternatives to the procedure were explained and verbal and written consent w as obtained. The site was prepped in sterile fashion. Full sterile technique was used, including ca p, mask, sterile gloves and gown and a large sterile sheet. Hand hygiene and 2% chlorhexidine and/or betadine/alcohol prep was utilized per protocol for cutaneous antisepsis. Sterile gel and sterile p robe cover were utilized for ultrasound guidance. The skin and subcutaneous tissues were infiltrated with local anesthetic solution. With ultrasound and fluoroscopic guidance the right femoral artery was punctured. An Omni Flush cath eter was placed over aortic bifurcation into the left internal iliac artery where imaging was perform ed to identify the uterine artery. The uterine artery was subsequent catheterized and angiography wa s performed demonstrating multiple feeding vessels supplying the uterine fibroids. Embolization was performed using the prescribed size of polyvinyl alcohol to complete stasis. Followup angiography fr om the internal iliac vessel demonstrates complete stasis and no antegrade flow within the left uteri ne artery. An Omni Flush catheter was then used to select the ipsilateral right internal iliac artery where imag ing was performed to identify the uterine artery. The right uterine artery is clearly the dominant solis pply. The uterine artery was subsequently catheterized and angiography was performed demonstrating mu ltiple feeding vessels supplying the uterine fibroids. Embolization was performed using the prescrib ed dose of polyvinyl alcohol to complete stasis. During the process of selection of the uterine arter y a small focus of active hemorrhage was seen involving a small branch of the right pelvic sidewall. This spontaneously stopped. Followup angiography from the internal iliac vessel demonstrates complete stasis and no antegrade flow within the left uterine artery. Conscious sedation was performed with the prescribed dosages and duration as above in the presence of an independent trained radiology nurse to assist in the monitoring of the patient. EKG and oximetry remained stable throughout the procedure. The patient tolerated the procedure well and there were n o complications. The patient was sent to post anesthesia recovery in stable condition. CONCLUSION: Uncomplicated uterine artery embolization as above. The dominant supply is via the right uterine desmond ry. Ren Mesa Jr., MD on January 30, 2017 at 14:29 Board Certified Radiologist. This report was verified electronically.
[2017-01-30] MEDS: LEVOFLOXACIN 500 MG TAB PO SCH (17:26)
[2017-01-30] MEDS: KETOROLAC TROMETHAMINE 10 MG TAB PO SCH (17:27)
[2017-01-30] MEDS: PCA - TOTAL MG DILAUDID DELIVERED PER SHIFT OTHER SCH ×2 (17:28→22:00)
[2017-01-31] VITALS: BP 126/57; PULSE 84; RESP 14; TEMP 98.9; O2SAT 99
[2017-01-31] MEDS: KETOROLAC TROMETHAMINE 10 MG TAB PO SCH ×3 (00:09→10:46)
[2017-01-31 04:00] VITALS: BP 110/51; PULSE 75; RESP 14; TEMP 98; O2SAT 100
[2017-01-31] MEDS: PCA - TOTAL MG DILAUDID DELIVERED PER SHIFT OTHER SCH (04:34)
[2017-01-31] MEDS: SODIUM CHLOR 0.9% 1000 ML INJ 1,000 ML IV SCH (04:34)
[2017-01-31 08:00] VITALS: BP 117/70; PULSE 81; RESP 16; TEMP 98.8; O2SAT 99
[2017-01-31] MEDS ORDERED: oxyCODONE/ACETAMINOPHEN 5 MG/325 MG TAB PO ONE (10:00)
[2017-01-31] MEDS: LEVOFLOXACIN 500 MG TAB PO SCH (13:28)
== END 2017-01-31 13:56 | disposition home or self-care (01) ==
LOC: HROP 07:32 → HRIP 07:35 → HROP 15:55 → HCIS 15:58
PROVIDERS: ADMIT Radiology Body Imaging; ATTEND Radiology Body Imaging
DX: J45.909 Unspecified asthma, uncomplicated (principal); E11.9 Type 2 diabetes mellitus without complications
CPT/HCPCS: 36247; 37243; 75774; 76937; 99152; 99153; C1769; C1887; C1894; G0378; J0690; J1170; J1885; J2250; J2405; J3010; J7030; Q9967

== ENCOUNTER 2017-02-03 05:46 | Inpatient (IN) | payer OTHER ==
[~2017-02-03] VITALS: Ht 167.6 cm; Wt 86.6 kg
[~2017-02-03 05:46] MED LIST changes: -NORG1TAB2 PO
[2017-02-03] MEDS ORDERED: SODIUM CHLORIDE FLUSH PRN IV FLUSH (06:30)
[2017-02-03] MEDS ORDERED: POVIDONE IODINE 5% (ANTISEPSIS KIT) 4 APPLICATIONS EACH NARE PRN (06:30)
[2017-02-03] MEDS ORDERED: ceFAZolin 2 GM PREMIX 50 ML IV SCH (06:30)
[2017-02-03] MEDS ORDERED: HEPARIN SODIUM - SQ 10,000 UNITS/ML VIAL SQ SCH (06:30)
[2017-02-03] MEDS ORDERED: SODIUM CHLORID 0.9% 500 ML IV PRN (06:30)
[2017-02-03] MEDS ORDERED: METOPROLOL TARTRATE 25 MG TAB PO PRN (06:30)
[2017-02-03] MEDS ORDERED: CHLORHEXIDINE GLUCONATE 2 % 1 PACK (2 CLOTHS) TOPICAL PRN (06:30)
[2017-02-03] MEDS ORDERED: LACTATED RINGER'S 1000 ML IV PRN (06:30)
[2017-02-03] MEDS ORDERED: INSULIN HUMAN REGULAR 1,000 UNITS/10 ML VIAL SQ PRN (06:30)
[2017-02-03] MEDS ORDERED: ACETAMINOPHEN 1000 MG/100 ML 100 ML IV ONE (06:39)
[2017-02-03] MEDS ORDERED: ARTIFICIAL TEARS OPTH OINT 3.5 APPLIC/3.5 GM TUBO ONE (06:40)
[2017-02-03] MEDS ORDERED: SUGAMMADEX SODIUM 200 MG/2 ML VIAL IV PUSH ONE ×2 (06:40)
[2017-02-03] MEDS ORDERED: HYDROmorphone HCL PF 2 MG/ML VIAL ONE (06:40)
[2017-02-03] MEDS ORDERED: SODIUM CHLORIDE FLUSH BID IV FLUSH SCH (09:00)
[2017-02-03] MEDS ORDERED: ONDANSETRON HCL 4 MG/2 ML VIAL IVP PRN (10:30)
[2017-02-03] MEDS ORDERED: diphenhydrAMINE HCL 25 MG CAP PO PRN (10:30)
[2017-02-03] MEDS ORDERED: NALOXONE HCL 0.4 MG/ML AMP IV PUSH PRN (10:30)
[2017-02-03] MEDS ORDERED: LORazepam 0.5 MG TAB PO PRN (10:30)
[2017-02-03] MEDS ORDERED: MORPHINE SULFATE 30 MG/30 ML PCA IV SCH (10:30)
[2017-02-03] MEDS ORDERED: SODIUM CHLORIDE 0.9% FLUSH 10 ML FLUSH IV FLUSH PRN ×2 (10:30)
[2017-02-03] MEDS ORDERED: oxyCODONE/ACETAMINOPHEN 5 MG/325 MG TAB PO PRN (10:30)
[2017-02-03] MEDS ORDERED: DO NOT ADM ANY ANTICOAGULANT DRUGS PRN (11:04)
[2017-02-03] MEDS ORDERED: *morphine SULFATE 8 MG/ML PERIprocedure ONLY ONE ×3 (11:13→12:13)
[2017-02-03] MEDS: D5-1/2 NS + KCL 20 MEQ INJ 1,000 ML IV SCH ×2 (11:40→18:42)
[2017-02-03] MEDS ORDERED: ROCURONIUM INJ 50 MG/5 ML SYRINGE IV PUSH ONE (13:33)
[2017-02-03] MEDS ORDERED: VECURONIUM BROMIDE 20 MG VIAL IV ONE (13:33)
[2017-02-03] MEDS ORDERED: PROPOFOL 200 MG/20 ML AMP IV ONE (13:33)
[2017-02-03] MEDS ORDERED: DEXAMETHASONE SOD PHOS 4 MG/ML VIAL IV ONE (13:33)
[2017-02-03] MEDS ORDERED: ONDANSETRON HCL 4 MG/2 ML VIAL IV PUSH ONE (13:33)
[2017-02-03] MEDS ORDERED: LACTATED RINGER'S 1000 ML INJ 1,000 ML IV ONE (13:33)
[2017-02-03] MEDS ORDERED: ESMOLOL HCL 100 MG/10 ML VIAL IV ONE (13:33)
[2017-02-03] MEDS ORDERED: MIDAZOLAM HCL 2 MG/2 ML VIAL IV ONE (13:33)
[2017-02-03] MEDS ORDERED: NORMOSOL R INJ 1,000 ML IV ONE (13:33)
[2017-02-03] MEDS ORDERED: LIDOCAINE HCL 1% PF 5 ML AMPULE OTHER ONE (13:33)
[2017-02-03] MEDS ORDERED: NEOSTIGMINE 3 MG/3 ML SYR IV ONE (13:33)
[2017-02-03] MEDS ORDERED: STERILE WATER FOR INJECTION 20 ML VIAL IV ONE (13:33)
[2017-02-03] MEDS ORDERED: KETOROLAC TROMETHAMINE 30 MG/ML (IVP) VIAL IV PUSH ONE (13:33)
[2017-02-03] MEDS ORDERED: GLYCOPYRROLATE 1 MG/5 ML SYRINGE IV PUSH ONE (13:33)
[2017-02-03] MEDS ORDERED: LORazepam 2 MG/ML VIAL ONE (13:54)
[2017-02-03] MEDS ORDERED: *ONDANSETRON 4 MG VIAL PERIprocedural Use ONLY ONE (13:57)
[2017-02-03] MEDS: PCA - TOTAL MG MORPHINE DELIVERED PER SHIFT SCH ×2 (14:00→22:00)
--- NOTE | 2017-02-03 15:39 | PD.ONC.PN ---
Subjective Subjective Remarks post op note: patient seen in PACU awaiting bed placement patient sleepy but awakens to voice using CHILD STUDY TEAM DIRECTOR for pain control no complaints Objective Data Date Time Temp Pulse Resp B/P (MAP) Pulse Ox O2 Delivery O2 Flow Rate FiO2 02/03/17 14:30 65 12 121/74 (90) 98 Room Air 02/03/17 14:00 69 18 121/78 (92) 98 Room Air 02/03/17 12:00 98.0 66 13 126/64 (84) 100 Nasal Cannula 2 02/03/17 11:45 77 12 124/65 (84) 100 Nasal Cannula 2 02/03/17 11:40 14 02/03/17 11:30 72 15 113/65 (81) 100 Nasal Cannula 2 02/03/17 11:15 78 16 116/73 (87) 100 Nasal Cannula 2 02/03/17 11:02 98.1 80 14 118/72 (87) 100 Nasal Cannula 3 02/03/17 06:33 98.3 78 20 116/83 (94) 100 02/03/17 02/03/17 02/03/17 07:00 15:00 23:00 Intake Total 2760 ml Output Total 1400 ml Balance 1360 ml Administered Medications Medications (Trade) Dose Ordered Sig/Corby Route PRN Reason Start Time Stop Time Status Last Admin Dose Admin Lactated Ringer's 1,000 ml @ 30 mls/hr Q24H PRN IV SEE LABEL COMMENTS 02/03/17 06:30 02/06/17 06:29 02/03/17 06:20 Povidone Iodine (Betadine 5% Antisepsis Kit) 1 applic SURVEY ANALYST PRN EACH NARE SEE LABEL COMMENTS 02/03/17 06:30 02/06/17 06:29 02/03/17 06:20 Chlorhexidine Gluconate (Chlorhexidine 2% Cloth) 3 pack SURVEY ANALYST PRN TOPICAL SEE LABEL COMMENTS 02/03/17 06:30 02/06/17 06:29 02/03/17 06:00 Cefazolin Sodium/ Dextrose 50 ml @ 100 mls/hr SURVEY ANALYST IV 02/03/17 06:30 02/03/17 21:00 02/03/17 06:45 Heparin Sodium (Porcine) (Heparin Inj) 5,000 units SURVEY ANALYST SQ 02/03/17 06:30 02/03/17 21:00 02/03/17 06:40 Potassium Chloride/Dextrose/ Sod Cl 1,000 ml @ 125 mls/hr Q8H IV 02/03/17 12:00 02/03/17 11:40 Morphine Sulfate (Morphine 1 Mg/ ml CHILD STUDY TEAM DIRECTOR) 30 mg UNSCH IV 02/03/17 10:30 02/03/17 11:40 Objective Remarks GENERAL: Well-nourished, well-developed patient. SKIN: Warm and dry. HEAD: Normocephalic. EYES: No scleral icterus. No injection or drainage. NECK: Supple. CARDIOVASCULAR: Regular rate and rhythm without murmurs. RESPIRATORY: Breath sounds equal bilaterally. No accessory muscle use. GASTROINTESTINAL: Abdomen soft, non-tender, nondistended, dressing is C/D/I EXTREMITIES: No cyanosis, or edema. MUSCULOSKELETAL: Adequate muscle tone. NEUROLOGICAL: No obvious focal deficit.sleepy but answering questions appropriately Assessment/Plan Problem List: (1) Post-operative state ICD Codes: Z98.890 - Other specified postprocedural states Status: Acute Plan: s/p X lap for hysterectomy resection of pelvic mass/uterine fibroids (2) Post-operative pain ICD Codes: G89.18 - Other acute postprocedural pain Plan: CHILD STUDY TEAM DIRECTOR for pain IV Toradol scheduled (3) Pelvic mass ICD Codes: R19.00 - Intra-abdominal and pelvic swelling, mass and lump, unspecified site Status: Resolved Plan: s/p X Lap hyst and resection of pelvic mass/fibroids pathology pending patient will follow up once discharged from hospital in 2 weeks gynecology teacher/onc clinic for final pathology Marquis Estrada Feb 03, 2017 15:39
[2017-02-03] MEDS: KETOROLAC TROMETHAMINE 30 MG/ML (IVP) VIAL IVP SCH ×2 (17:00→22:06)
[2017-02-03 17:31] VITALS: BP 113/67; PULSE 60; RESP 18; TEMP 97.5; O2SAT 100
[2017-02-03] MEDS ORDERED: SODIUM CHLORIDE 0.9% FLUSH 10 ML FLUSH IV FLUSH SCH (21:00)
[2017-02-03 21:16] VITALS: BP 127/82; PULSE 63; RESP 17; TEMP 97.9; O2SAT 99
[2017-02-03] MEDS: oxyCODONE/ACETAMINOPHEN 5 MG/325 MG TAB PO PRN (21:20)
[2017-02-03] MEDS: SODIUM CHLORIDE 0.9% FLUSH 10 ML FLUSH IV FLUSH SCH (21:20)
[2017-02-04 00:16] VITALS: BP 110/65; PULSE 75; RESP 17; TEMP 98.6; O2SAT 99
[2017-02-04] MEDS: D5-1/2 NS + KCL 20 MEQ INJ 1,000 ML IV SCH ×3 (02:41→18:19)
[2017-02-04 04:48] VITALS: BP 128/81; PULSE 71; RESP 16; TEMP 99; O2SAT 100
[2017-02-04] MEDS: KETOROLAC TROMETHAMINE 30 MG/ML (IVP) VIAL IVP SCH ×4 (04:50→20:31)
[2017-02-04] MEDS: PCA - TOTAL MG MORPHINE DELIVERED PER SHIFT SCH ×3 (04:52→20:33)
[2017-02-04 06:09] LABS: AUTOMATED NEUTROPHIL # 9.7 TH/MM3 (1.8-7.7); BASOPHIL # 0.1 TH/MM3 (0-0.2); BASOPHIL % 0.4 % (0.0-2.0); EOSINOPHIL % 0.2 % (0.0-4.0); HEMATOCRIT 34.5 % (35.0-46.0); HEMO FLAGS DIFF FINAL; LYMPH % 15.5 % (9.0-44.0); LYMPHOCYTE # 2.1 TH/MM3 (1.0-4.8); MEAN CELL VOLUME 86.7 FL (80.0-100.0); MEAN CORPUSCULAR HEMOGLOBIN 29.3 PG (27.0-34.0); MEAN CORPUSCULAR HGB CONC 33.8 % (32.0-36.0); MONO % 12.3 % (0.0-8.0); NEUT % 71.6 % (16.0-70.0); PLATELET COUNT 325 TH/MM3 (150-450); RED BLOOD COUNT 3.98 MIL/MM3 (4.00-5.30); WHITE BLOOD COUNT 13.6 TH/MM3 (4.0-11.0)
[2017-02-04 06:21] LABS: BICARBONATE 25.5 MEQ/L (21.0-32.0)
[2017-02-04] MEDS: oxyCODONE/ACETAMINOPHEN 5 MG/325 MG TAB PO PRN ×4 (06:44→20:29)
[2017-02-04] MEDS: SODIUM CHLORIDE 0.9% FLUSH 10 ML FLUSH IV FLUSH SCH ×2 (07:56→20:33)
[2017-02-04 08:14] VITALS: BP 115/75; PULSE 72; RESP 18; TEMP 98.5; O2SAT 99
--- NOTE | 2017-02-04 08:32 | HHI.PR ---
Subjective . no new c/o, adequate pain control, no n/v Objective . afeb, vss h/h11/34, creat 0.79, A&O x 3 , nad, lungs cta, cv rrr, abd soft nt, clean incision, ext nt Assessment/Plan . 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
[2017-02-04 11:18] VITALS: BP 106/76; PULSE 69; RESP 18; TEMP 98.8; O2SAT 95
--- NOTE | 2017-02-04 13:18 | MP ---
cc: MARVA LAM MD, SAVITHA B. DO Norah Calle MD [facility] DATE OF SURGERY: 02/03/2017 PREOPERATIVE DIAGNOSIS Multiple enlarging uterine masses POSTOPERATIVE DIAGNOSIS Multiple enlarging uterine masses. PROCEDURE Exploratory laparotomy Total abdominal hysterectomy bilateral salpingectomy bilateral oophoropexy. SURGEON Marva Lam MD COMMUNICATION ASSISTANT [employer] operations assistant. ANESTHESIA: General endotracheal anesthesia ESTIMATED BLOOD LOSS 150 cc IV FLUIDS 2500 cc URINE OUTPUT 200 cc HISTORY This is 26-year-old female with progressive pelvic and abdominal pressure pain found on exam and imaging to have a multilobulated masses thought to be of the uterine origin. She was treated with medical management [place] Lupron and even with hormonal manipulation where a reduction in the size of the masses would be expected. They actually increased in size on sequential imaging, and she became more symptomatic referring physician was concerned about possibility of atypical leiomyoma or possibly sarcoma. She was seen on this in the [facility] oncology office she was counseled extensively and she is absolutely certain that she wants definitive surgery being hysterectomy. If the findings are consistent with leiomyomas. She is not want myomectomies if there is any possibility that they could recur or be problematic in the future. She states with fair certainty that she does not wish to have children and is not interested in considering myomectomy. She is, however, interested in preservation of ovarian function to prevent premature menopause. She has been counseled regarding the potential cancer risk reduction of removing the fallopian tubes. She also understands that the masses will be sent for frozen section analysis and if a malignancy is detected additional staging biopsies may be recommended. She is seen again in the preop holding area where the aforementioned findings are reviewed. Questions were answered. She expressed good understanding. She underwent a uterine artery embolization last week and effort to reduce intraoperative blood loss. She is typed and crossed for blood today and she is certain that she wishes to move forward with definitive hysterectomy. FINDINGS: Upon exploration there are multiple masses the largest of which was arising from a very vascular pedunculated stalk from the uterine fundus. This mass was quite irregular in surface, very vascular, estimated to perhaps be between 16 and 18 cm. There was approximately 4-5 cm pedunculated mass that looked more like a typical leiomyoma and there were smaller leiomyomas throughout the myometrium a palpable and visible through the uterine wall. The tubes and ovaries grossly appeared normal. There were no appreciably enlarged pelvic or para-aortic lymph nodes. There were no peritoneal implants, liver diaphragm edges were smooth. Omentum, large small bowel and adjacent mesentery appeared normal. There were no peritoneal implants, nodularity or other abnormalities detected. Frozen section analysis of the large irregular appearing pedunculated mass showed it to be a spindle cell neoplasm favoring a benign entity favoring a benign leiomyoma. PROCEDURE She was taken to the operating room placed in dorsal lithotomy position after general endotracheal anesthesia was administered time-out was undertaken. She was identified by sight recognition and hospital ID bracelet and the proposed procedure was reviewed and confirmed. She was carefully positioned in padded Pedro stirrups. Her arms were secured out to the sides. She was prepped and draped sterile fashion. Newton catheter placed in the bladder. Change of sterile gloves was undertaken. Ioban was placed across the abdominal wall. Midline vertical incision made from the symphysis to the umbilicus, carried down to level of the fascia. The fascia was extended the rectus muscles were in midline and the peritoneal cavity was entered. Peritoneal incision was extended length of the skin incision. Visual and manual palpation revealed the findings as described above. Peritoneal washings were obtained for cytology. The mass. The uterus with a uterine masses was mobile enough to be brought out through the abdominal wall and the Bookwalter retractor and lap pads were used to assist in surgical exposure. Right round ligament was doubly suture ligated transected. The anterior and posterior leafs of the broad ligament were opened. The posterior peritoneum was opened along the right side of the uterus and cervix and the right vesicouterine peritoneum was dissected off the lower uterine segment and cervix. The right uterine vessels were skeletonized and a window was made in the peritoneum beneath the right utero-ovarian ligament. The right utero-ovarian ligament was then doubly clamped, the uterus was back clamped and the right utero-ovarian ligament was transected and doubly suture ligated and then reinforced with a suture ligature all using 0 Vicryl suture. The right fallopian tube was removed by bipolar cautery and monopolar cautery along the mesosalpinx starting distally and dissecting proximally resecting the tube and its origin to the uterus. The right ovary was then secured to the right round ligament with suture fixation between the round ligament and the residual right utero-ovarian ligament tied securely. The adjacent peritoneum was reapproximated to close the defect, tied and the needle was cut and removed. Similar steps were carried out on the left side where the left round ligament was doubly suture ligated, transected. The anterior posterior leafs of the broad ligament were opened. The posterior peritoneum was opened along the left side of uterus and cervix. The left vesicouterine peritoneum dissected off the lower uterine segment cervix and the left uterine vessels were skeletonized. A window was made in the peritoneum below the left utero-ovarian ligament and this ligament was doubly clamped the uterus at back clamped and utero-ovarian ligament was transected. This was doubly tied and then the 0 Vicryl suture ligature reinforced to render that completely hemostatic. Monopolar bipolar cautery used to remove the left fallopian tube starting distally, dissecting through the mesosalpinx proximally and transecting the fallopian tube near torsion at the uterus. The left ovary was secured to the left round ligament by the suture affixing the residual at the residual utero-ovarian ligament to the round ligament tied securely and then the intervening peritoneal defect was closed tied needle was cut and removed. Now the prominent uterine vessels were exposed bilaterally and there were doubly clamped, cut and doubly suture ligated bilaterally which further blanched the uterus and the uterine masses on the cardinal ligaments were then clamped, cut and suture ligated followed by the paracervical and then the uterosacral ligaments clamped, cut suture-ligated in a stepwise fashion until curved Yee clamps could be placed below the cervix at the lateral vaginal angles and sharp dissection was used to cut below the cervix to separate from the upper vagina. The specimen was removed. The entire cervix, uterus and a pedunculated mass as were removed and sent for frozen section analysis. Vaginal cuff was secured at the corners with interrupted [id number] 0 Vicryl sutures including the posterior peritoneum and the edge of the uterosacral ligament. The vaginal cuff was further supported and rendered hemostatic with interrupted [id number] 0 Vicryl sutures. The pelvis was thoroughly irrigated. Small bleeders rendered hemostatic with bipolar cautery. A small oozer at the right vaginal cuff was rendered hemostatic with interrupted [id number] 3-0 Vicryl suture. The Surgicel was placed across the vaginal cuff and lateral vaginal angles to assist in continued hemostasis. Frozen section came back showing no evidence of malignancy favoring a benign leiomyomas, it was felt therefore that all reasonable surgical objectives had been completed attention was directed toward closing. The lap pads were removed. The Bookwalter was disassembled visual and manual inspection confirmed there were no remaining foreign objects in the peritoneal cavity there was good hemostasis. Preliminary counts were correct and direction was attention toward closing. The abdominal wall was closed with zero looped PDS in a running modified Smead-Hays fashion starting at apices and meeting in the midpoint where the sutures were tied. Subcutaneous tissue were irrigated. Gladis fascia reapproximated with interrupted 2-0 Vicryl sutures and the skin edges were was closed with a 3-0 Vicryl running subcuticular closure. Steri-Strips and dry sterile dressing were placed over the incision. The preliminary counts were correct. Pelvic exam confirmed there were no remaining foreign objects in the vagina. She was returned to dorsal supine position. Final counts were correct and she was pending reversal of anesthesia when I left the operating room to precede her to the Post Anesthesia Care Unit. MD CORINNE Martinez/justin /5:25 PM /11:16 AM
[2017-02-04 18:14] VITALS: BP 134/93; PULSE 83; RESP 18; TEMP 96.7; O2SAT 100
[2017-02-04 20:25] VITALS: BP 121/78; PULSE 72; RESP 16; TEMP 98.7; O2SAT 100
[2017-02-05] MEDS: D5-1/2 NS + KCL 20 MEQ INJ 1,000 ML IV SCH (02:40)
[2017-02-05] MEDS: PCA - TOTAL MG MORPHINE DELIVERED PER SHIFT SCH (04:33)
[2017-02-05] MEDS: KETOROLAC TROMETHAMINE 30 MG/ML (IVP) VIAL IVP SCH ×2 (05:07→10:43)
[2017-02-05 05:20] VITALS: BP 127/82; PULSE 78; RESP 16; TEMP 99.8; O2SAT 100
[2017-02-05] MEDS: SODIUM CHLORIDE 0.9% FLUSH 10 ML FLUSH IV FLUSH SCH (07:50)
[2017-02-05] MEDS ORDERED: OXYC1TAB63 PO (08:59)
--- NOTE | 2017-02-05 09:09 | HHI.DS ---
Discharge Summary Admission Date Feb 03, 2017 at 05:46 Discharge Date: Feb 05, 2017 Admitting Diagnosis pelvic mass (1) Pelvic mass Diagnosis: Principal ICD Codes: R19.00 - Intra-abdominal and pelvic swelling, mass and lump, unspecified site Status: Resolved (2) Post-operative state ICD Codes: Z98.890 - Other specified postprocedural states Status: Acute Procedures X Lap for hysterectomy, resection of pelvic mass/fibroids Brief History This is a 26 year old female that was found to have enlarged uterus with pelvic mass(s). Imaging consistent with leiomyomas. She presented for definitive surgery on 02/03/17 after having failed conservative treatments. Patient hospital stay has been uneventful and she meets criteria for discharge. CBC/BMP: 02/04/17 0538 02/04/17 0530 Significant Findings Laboratory Tests Test 02/04/17 05:30 02/04/17 05:38 Blood Urea Nitrogen 4 MG/DL (7-18) White Blood Count 13.6 TH/MM3 (4.0-11.0) Red Blood Count 3.98 MIL/MM3 (4.00-5.30) Hematocrit 34.5 % (35.0-46.0) Neutrophils (%) (Auto) 71.6 % (16.0-70.0) Monocytes (%) (Auto) 12.3 % (0.0-8.0) Neutrophils # (Auto) 9.7 TH/MM3 (1.8-7.7) Monocytes # (Auto) 1.7 TH/MM3 (0-0.9) PE at Discharge A and O X 3 in NAD CV: RRR Lungs: CTA bilat abd: dressing C/D/I, no distention and nontender LE: teds and scds Pt Condition on Discharge: Good Discharge Disposition: Discharge Home Discharge Instructions DIET: Follow Instructions for: As Tolerated, No Restrictions Activities you can perform: Pelvic Rest Activities to avoid: Lifting/Bending, Strenuous Activity, Sexual Activity Additional Activity Instructio: no heavy lifting/pushing or pulling > 5 pounds Follow up Referrals: Appointment for Follow Up - 2 Weeks @ [facility] New Medications: Oxycodone-Acetaminophen (Oxycodone-Acetaminophen) 5-325 mg Tab 1 TAB PO Q4H PRN for PAIN SCALE 1 TO 5 for 7 Days, #42 TAB Discontinued Medications: Ibuprofen (Ibuprofen) 800 Mg Tab 800 MG PO Q8H PRN for Pain/Inflammation, #60 TAB 0 Refills Marquis Estrada Feb 05, 2017 09:09
[2017-02-05] MEDS: oxyCODONE/ACETAMINOPHEN 5 MG/325 MG TAB PO PRN (10:43)
[2017-02-05 12:14] VITALS: BP 110/65; PULSE 85; RESP 16; TEMP 99
== END 2017-02-05 15:47 | disposition home or self-care (01) | DRG 743 ==
LOC: HSDI 05:46 → HCIS 17:17
PROVIDERS: ADMIT Obstetrics & Gynecology Gynecologic Oncology; ATTEND Obstetrics & Gynecology Gynecologic Oncology
PROC: 0UTC0ZZ Resection of Cervix, Open Approach (ICD-10-PCS; 2017-02-03)
PROC: 0UT70ZZ Resection of Bilateral Fallopian Tubes, Open Approach (ICD-10-PCS; 2017-02-03)
PROC: 0UT20ZZ Resection of Bilateral Ovaries, Open Approach (ICD-10-PCS; 2017-02-03)
PROC: 0UT90ZZ Resection of Uterus, Open Approach (ICD-10-PCS; principal; 2017-02-03 07:23)
DX: D25.2 Subserosal leiomyoma of uterus (principal); G89.18 Other acute postprocedural pain
CPT/HCPCS: 80048; 85025; 86850; 86900; 86901; 86920; 88305; 88307; 88331; 94150; J0131; J0690; J1100; J1170; J1644; J1885; J2060; J2250; J2270; J2405; J2710; J3010; J3480; J7120

== ENCOUNTER 2017-03-30 10:15 | Emergency (ER) | payer OTHER ==
[~2017-03-30] VITALS: Ht 167.6 cm; Wt 86.7 kg
[~2017-03-30 10:15] MED LIST changes: -IBUP800T23 PO; +OXYC1TAB63 PO; -TRAM50TA PO
[2017-03-30 10:20] VITALS: BP 117/70; PULSE 92; RESP 16; TEMP 98.5; O2SAT 98
[2017-03-30] MEDS ORDERED: FLUT1SPR5 EACH NARE (11:57)
--- NOTE | 2017-03-30 11:59 | PD ---
HPI Chief Complaint: Musculoskeletal Complaint Time Seen by Provider: 11:18 Travel History International Travel<30 days: No Contact w/Intl Traveler<30days: No Traveled to known affect area: No History of Present Illness HPI 26-year-old female presents emergency department for evaluation of upper respiratory symptoms, cough, nasal congestion and sore throat. Patient also states her bilateral upper extremities ache at at times x one week. Patient states they mostly ache at night. The aching does not prevent her from activity. There is no chest pain or shortness of breath associated with aching. The pain does not radiate. Patient denies any excessive use or working out prior to the pain starting. Bilateral upper extremities neurovascularly intact with full range of motion. 5 out of 5 strength. No obvious deformities , erythema, cyanosis, edema. Patient denies any fever, chills, chest pain, nausea, vomiting, diarrhea. Patient states her urine is really dark in color, very concentrated at times. Patient denies any dysuria or hematuria. PFSH Past Medical History Asthma: Yes Cancer: No Cardiovascular Problems: No COPD: No Cerebrovascular Accident: No Diabetes: No Diminished Hearing: No Endocrine: No Gastrointestinal Disorders: No GERD: No Genitourinary: No Headaches: Yes Hepatitis: No Hiatal Hernia: No Immune Disorder: No Medical other: Yes (myomectomy) Musculoskeletal: No Neurologic: Yes Psychiatric: No Reproductive: No Respiratory: Yes (childhood asthma) Immunizations Current: Yes Migraines: No Seizures: No Sickle Cell Disease: No Sleep Apnea: No Thyroid Disease: No Ulcer: No ?: Not Menopausal: No : 0 Para: 0 Miscarriage: 0 : 0 Past Surgical History Abdominal Surgery: Yes (appendectomy ) AICD: No Appendectomy: Yes Cardiac Surgery: No Ear Surgery: No Endocrine Surgery: No Eye Surgery: No Genitourinary Surgery: No Gynecologic Surgery: No Joint Replacement: No Oral Surgery: No Pacemaker: No Thoracic Surgery: No Other Surgery: Yes Social History Alcohol Use: No Tobacco Use: No Substance Use: No Allergies-Medications (Allergen,Severity, Reaction): Coded Allergies: No Known Allergies (Verified Adverse Reaction, Unknown, 03/30/17) Reported Meds & Prescriptions Reported Meds & Active Scripts Active Bactrim DS (Sulfamethoxazole-Trimethoprim) 800-160 Mg Tab 1 Tab PO BID 7 Days Flonase Nasal [place] (Fluticasone Nasal [place]) 50 Mcg/Act [place] 50 Mcg EACH NARE BID Review of Systems Except as stated in HPI: all other systems reviewed are Neg Physical Exam Narrative GENERAL: Well-nourished, well-developed 26-year-old female patient in no acute distress. Nontoxic appearing. SKIN: Focused skin assessment warm/dry. HEAD: Normocephalic. Atraumatic. EYES: No scleral icterus. No injection or drainage. NECK: Supple, trachea midline. No JVD or lymphadenopathy. CARDIOVASCULAR: Regular rate and rhythm without murmurs, gallops, or rubs. RESPIRATORY: Breath sounds equal bilaterally. No accessory muscle use. GASTROINTESTINAL: Abdomen soft, non-tender, nondistended. MUSCULOSKELETAL: No obvious deformity, erythema, ecchymosis, cyanosis, or edema. BACK: Nontender without obvious deformity. No CVA tenderness. Data Data Last Documented VS Vital Signs Date Time Temp Pulse Resp B/P (MAP) Pulse Ox O2 Delivery O2 Flow Rate FiO2 03/30/17 10:20 98.5 92 16 117/70 (86) 98 Orders Orders Urinalysis - C+S If Indicated (03/30/17 11:43) Urine Culture (03/30/17 12:00) Ed Discharge Order (03/30/17 12:38) Labs Laboratory Tests Test 03/30/17 12:00 Urine Collection Type CLEAN CATCH Urine Color YELLOW Urine Turbidity MOD Urine pH 6.0 Urine Specific [place] 1.030 Urine Protein TRACE mg/dL Urine Glucose (UA) NEG mg/dL Urine Ketones NEG mg/dL Urine Occult Blood TRACE Urine Nitrite NEG Urine Bilirubin NEG Urine Leukocyte Esterase MOD Urine RBC 0-3 /hpf Urine WBC 50-99 /hpf Urine WBC Clumps FEW Urine Squamous Epithelial Cells > 8 /hpf Urine Amorphous Sediment MOD Urine Bacteria MOD /hpf Microscopic Urinalysis Comment CULTURE INDICATED Urine Collection Time 1200 MDM Medical Decision Making Medical Screen Exam Complete: Yes Emergency Medical Condition: Yes Differential Diagnosis Differential diagnoses include but not limited to URI, pharyngitis, sinusitis, rhabdomyolysis, myalgia Narrative Course 26-year-old female presents emergency department for evaluation of upper respiratory symptoms and intermittent bilateral arm aching times one week. Physical exam consistent with upper respiratory infection and nasal congestion. Patient given a prescription for Flonase to help relieve the nasal congestion. Patient denies any overuse or activity that would result in bilateral arm aching 1 week. She states the pain is worse at night. She denies any shortness of breath or chest pain. There is no edema or erythema noted, patient retains full range of motion and has 5 out of 5 muscle strength in both arms. The presentation and consistency presents equally in bilateral arms. Using Wells criteria for DVT patient was placed in a very low and likely risk for DVT. However urinalysis ordered to assess for protein and possible rhabdo due to the patient saying she has concentrated urine and arm pain. Urinalysis was negative for protein however it shows a urinary tract infection. Patient discharged home with prescription for Bactrim. Patient then states she was just treated for urinary tract infection last week. Patient discharged home at this time with instructions to return the emergency Department with any worsening condition but otherwise follow up with primary care. Diagnosis Primary Impression: UTI (urinary tract infection) Qualified Codes: N39.0 - Urinary tract infection, site not specified Additional Impression: URI (upper respiratory infection) Qualified Codes: J06.9 - Acute upper respiratory infection, unspecified Referrals: Primary Care Physician Patient Instructions: General Instructions, Upper Respiratory Infection (ED) Additional Instructions: Please return to emergency department if your symptoms return or worsen. Follow up with your primary care provider. Take medications as prescribed. Bactrim is free at [facility]. Supportive care, stay hydrated, get enough rest, diet as tolerated. Alternate ibuprofen and Tylenol as needed for pain or fevers. Med/Other Pt SpecificInfo: Prescription(s) given Scripts Sulfamethoxazole-Trimethoprim (Bactrim DS) 800-160 Mg Tab 1 TAB PO BID for Infection for 7 Days, #14 TAB 0 Refills Prov: Denise Rondon 03/30/17 Fluticasone Nasal [place] (Flonase Nasal [place]) 50 Mcg/Act [place] 50 MCG EACH NARE BID for Allergies, #1 BOTTLE 0 Refills Prov: Denise Rondon 03/30/17 Disposition: 01 DISCHARGE HOME Condition: Stable Denise Rondon Mar 30, 2017 11:59
[2017-03-30 12:16] LABS: BILIRUBIN, URINE NEG (NEG); BLOOD, URINE TRACE (NEG); GLUCOSE,URINE NEG (NEG); KETONE, URINE NEG (NEG); NITRITE,URINE NEG (NEG); URINE LEUKOCYTE ESTERASE MOD (NEG)
[2017-03-30 12:24] LABS: URINE COLOR YELLOW (YELLW/STRAW)
[2017-03-30 12:26] LABS: AMORPHOUS SEDIMENT, URINE MOD; BACTERIA, URINE MOD /hpf; RBC, URINE 0-3 /hpf (0-3); SQUAMOUS EPITHELIAL CELL URINE > 8 /hpf (0-5); WHITE BLOOD CELL CLUMPS FEW
[2017-03-30] MEDS ORDERED: BACT800T5 PO (12:36)
== END 2017-03-30 13:07 | disposition home or self-care (01) ==
LOC: PHEFT 10:15
DX: N39.0 Urinary tract infection, site not specified (principal); B96.89 Other specified bacterial agents as the cause of diseases classified elsewhere; J06.9 Acute upper respiratory infection, unspecified
CPT/HCPCS: 81001; 87086; 99283

== ENCOUNTER 2017-04-11 17:09 | Emergency (ER) | payer OTHER ==
[~2017-04-11] VITALS: Ht 167.6 cm; Wt 81.5 kg
[~2017-04-11 17:09] MED LIST changes: +BACT800T5 PO; +FLUT1SPR5 EACH NARE; -OXYC1TAB63 PO
[2017-04-11 17:11] VITALS: BP 119/79; PULSE 106; RESP 20; TEMP 99.7; O2SAT 100
[2017-04-11] MEDS ORDERED: KETOROLAC TROMETHAMINE 60 MG/2 ML (IM) VIAL IM ONE (18:30)
[2017-04-11] MEDS ORDERED: BUTA1CAP PO (18:39)
--- NOTE | 2017-04-11 18:53 | PD ---
HPI Chief Complaint: Headache Time Seen by Provider: 17:41 Travel History International Travel<30 days: No Contact w/Intl Traveler<30days: No Traveled to known affect area: No History of Present Illness HPI The patient was seen and examined in the presence of the nurse. This patient complains of migraine headache. Location is right frontal throbbing. No head injury or fever or thunderclap onset. She does have history of migraines. She tried a dose of BC powder without relief. Symptoms severity is mild to moderate PFSH Past Medical History Asthma: Yes Cancer: No Cardiovascular Problems: No COPD: No Cerebrovascular Accident: No Diabetes: No Diminished Hearing: No Endocrine: No Gastrointestinal Disorders: No GERD: No Genitourinary: No Headaches: Yes Hepatitis: No Hiatal Hernia: No Immune Disorder: No Musculoskeletal: No Neurologic: Yes Psychiatric: No Reproductive: No Respiratory: Yes (childhood asthma) Immunizations Current: Yes Migraines: No Seizures: No Sickle Cell Disease: No Sleep Apnea: No Thyroid Disease: No Ulcer: No ?: Unknown Menopausal: No : 0 Para: 0 Miscarriage: 0 : 0 Past Surgical History Abdominal Surgery: Yes (appendectomy ) AICD: No Appendectomy: Yes Cardiac Surgery: No Ear Surgery: No Endocrine Surgery: No Eye Surgery: No Genitourinary Surgery: No Gynecologic Surgery: No Hysterectomy: Yes (partial) Joint Replacement: No Oral Surgery: No Pacemaker: No Thoracic Surgery: No Other Surgery: Yes Social History Alcohol Use: No Tobacco Use: No Substance Use: No Allergies-Medications (Allergen,Severity, Reaction): Coded Allergies: No Known Allergies (Verified Adverse Reaction, Unknown, 03/30/17) Reported Meds & Prescriptions Reported Meds & Active Scripts Active Fioricet (Aqhcgwiuso-Gamwjscnaldct-Sxphaqxh) 50-300-40 Mg Cap 1 Cap PO Q4H PRN Bactrim DS (Sulfamethoxazole-Trimethoprim) 800-160 Mg Tab 1 Tab PO BID 7 Days Flonase Nasal Biddle (Fluticasone Nasal Biddle) 50 Mcg/Act Biddle 50 Mcg EACH NARE BID Review of Systems General / Constitutional: No: Fever HENT: Positive: Headaches Cardiovascular: No: Chest Pain or Discomfort Respiratory: No: Cough Gastrointestinal: No: Vomiting Physical Exam Narrative GENERAL: Well-nourished, well-developed patient in no apparent distress. SKIN: Focused skin assessment reveals no rash and nodules. Skin is Warm and dry. HEAD: Atraumatic. Normocephalic. EYES: Pupils equal and round. No scleral icterus. No injection or drainage. ENT: No nasal bleeding or discharge. Mucous membranes pink and moist. NECK: Trachea midline. No JVD. CARDIOVASCULAR: Regular rate and rhythm. No murmur appreciated. RESPIRATORY: No accessory muscle use. Clear to auscultation. Breath sounds equal bilaterally. GASTROINTESTINAL: Abdomen soft, non-tender, nondistended. Hepatic and splenic margins not palpable. MUSCULOSKELETAL: No obvious deformities. No clubbing. No cyanosis. No edema. NEUROLOGICAL: Awake and alert. No obvious cranial nerve deficits. Motor grossly within normal limits. Normal speech. PSYCHIATRIC: Appropriate mood and affect; insight and judgment normal. Data Data Last Documented VS Vital Signs Date Time Temp Pulse Resp B/P (MAP) Pulse Ox O2 Delivery O2 Flow Rate FiO2 04/11/17 17:11 99.7 106 20 119/79 (92) 100 Room Air Orders Orders Ketorolac Inj (Toradol Inj) (04/11/17 18:30) [facility] Medical Decision Making Medical Screen Exam Complete: Yes Emergency Medical Condition: Yes Medical Record Reviewed: Yes Differential Diagnosis Differential diagnosis includes migraine, tension headache, cluster headache, meningitis. Narrative Course I have reviewed the patient's electronic medical record. Patient complains of migraine headache. She is neurologically intact. No red flags to suggest emergent imaging is indicated. She does not look to be having a lot of pain I gave her injection of Toradol She is driving I prescribed her some Fioricet to use as needed Diagnosis Primary Impression: Migraine headache Qualified Codes: G43.009 - Migraine without aura, not intractable, without status migrainosus Additional Instructions: The patient was advised to follow up with their physician and return if they worsen. The patient was warned about potential sedation for the medications they will receive on prescription. Med/Other Pt SpecificInfo: Prescription(s) given Scripts Fbxzikohxm-Lyszvsxzfaaob-Drukfudn (Fioricet) 50-300-40 Mg Cap 1 CAP PO Q4H Y for HEADACHE, #12 CAP 0 Refills Prov: Stewart Pineda MD 04/11/17 Disposition: 01 DISCHARGE HOME Condition: Stable Stewart Pineda MD Apr 11, 2017 18:53
== END 2017-04-11 19:05 | disposition home or self-care (01) ==
LOC: NEPD 17:09
DX: G43.909 Migraine, unspecified, not intractable, without status migrainosus (principal); J45.909 Unspecified asthma, uncomplicated
CPT/HCPCS: 96372; 99284; J1885

== ENCOUNTER → 2017-05-01 | Outpatient (CLI) | payer OTHER ==
[~2017-05-01] MED LIST changes: +BUTA1CAP PO; +IOHEXOL 350 MG/ML 10 ML VIAL (for RAD DIAG) IVCONTRAST ONE
--- NOTE | 2017-05-01 15:27 | RADRPT ---
EXAM DATE/TIME: 05/01/2017 14:30 [facility] COMPARISON: CT ABDOMEN & PELVIS W CONTRAST, April 25, 2016, 8:52. INDICATIONS : Pelvic swelling, mass. IV CONTRAST: 90 cc Omnipaque 350 (iohexol) IV ORAL CONTRAST: Prescribed oral contrast ingested. RADIATION DOSE: 11.13 CTDIvol (mGy) MEDICAL HISTORY : None SURGICAL HISTORY : Appendectomy. Fibroid ENCOUNTER: Initial ACUITY: 2 weeks PAIN SCALE: 5/10 LOCATION: lower quadrant Abdomen TECHNIQUE: Volumetric scanning of the abdomen and pelvis was performed. Using automated exposure control and ad justment of the mA and/or kV according to patient size, radiation dose was kept as low as reasonably achievable to obtain optimal diagnostic quality images. DICOM format image data is available electro nically for review and comparison. FINDINGS: LOWER LUNGS: The visualized lower lungs are clear. LIVER: Liver density suggesting a stenosis. No liver lesion is identified. There is no dilation of the bili dejon tree. No calcified gallstones. SPLEEN: Normal size without lesion. PANCREAS: Within normal limits. KIDNEYS: Normal in size and shape. There is no mass, stone or hydronephrosis. ADRENAL GLANDS: Within normal limits. VASCULAR: There is no aortic aneurysm. BOWEL/MESENTERY: The stomach, small bowel, and colon demonstrate no acute abnormality. There is no free intraperitone al air or fluid. ABDOMINAL WALL: There is postsurgical change on the midline inferior abdominal wall. RETROPERITONEUM: There is no lymphadenopathy. BLADDER: No wall thickening or mass. REPRODUCTIVE: Uterus is absent. The soft tissue mass is demonstrated previously have been removed in the interval. Ovaries demonstrate no concerning abnormality. There is a 14 mm right ovarian cyst. INGUINAL: There is no lymphadenopathy or hernia. MUSCULOSKELETAL: No acute abnormality is identified. There is a 12 mm bone island in the right ischium. CONCLUSION: 1. Postsurgical changes on the anterior abdominal wall. The abdominal and pelvic masses have been rem miguel in the interval. No acute abnormality is identified. 2. There is a 14 mm right ovarian cyst. Gianfranco Hampton MD on May 01, 2017 at 15:10 Board Certified Radiologist. This report was verified electronically.
== END ==
LOC: HRAD 12:45
PROVIDERS: ATTEND Obstetrics & Gynecology Gynecologic Oncology
DX: R19.00 Intra-abdominal and pelvic swelling, mass and lump, unspecified site (principal)
CPT/HCPCS: 74177; Q9967